=== PATIENT | female | born 1945 | race Hispanic/Latino ===

== ENCOUNTER 2018-03-04 05:28 | Emergency (ER) | payer OTHER ==
--- OUTSIDE RECORDS SUMMARY | 2018-03-04 05:30 | XMS REPORT ---
:1945 [facility] Address [address] [place] [address] Dr. Bose [address] [place] [id number] Care Team Providers Name Role Phone IBRAHIMA ESTRADA Unavailable Unavailable Problems This patient has no known problems. Allergies, Adverse Reactions, Alerts This patient has no known allergies or adverse reactions. Medications This patient has no known medications. Results Test Description Test Time Test Comments Text Results Atomic Results Result Comments TISSUE EXAM 2017-04-05 10:41:00 Surgical Pathology Report Case: [id number] Authorizing Provider: Ibrahima Estrada MD Collected: 03/31/2017 1558 Ordering Location: [facility] Endoscopy Received: 04/01/2017 0811 Services Pathologist: Jourdan Ortiz MD Specimen: Ampulla, ampulla polyp AMPULLA, POLYPECTOMY- DUODENAL MUCOSA WITH PRIOR RESECTION SITE CHANGES AND MARKED CAUTERY ARTEFACT - SEPARATE PIECE OF BENIGN DUODENAL MUCOSA WITH NO SIGNIFICANT DIAGNOSTIC ALTERATIONS- SEE COMMENT The biopsy includes pieces of duodenal mucosa with marked cautery artefact and showing changes consistent with prior resection site. There is nuclear stratification and atypia but these appear to be secondary to cautery artefact. No definitive adenomatous changes are seen. There is no high grade dysplasia or carcinoma. [id number] of small intestine, abnormal imaging study Ampulla polypThe specimen is received in a formalin-filled container labeled with the patient's information and labeled "ampulla polyp" and consists of two irregular shaped fragments segments of low tissue ranging from 0.3 to 0.6 cm, submitted entirely in A1. CG/ew Section shows pieces of duodenal mucosa with cautery artefact. There are foci of surface epithelial denudation with dilated ectatic congested capillaries and reactive fibrosis. The features are consistent with prior resection site. Focally preserved epithelium shows nuclear stratification and atypia and is interpreted as a cautery artefact. No high grade dysplasia or invasive carcinoma is seen. There is one separate piece of duodenal mucosa with no significant diagnostic alterations. TISSUE EXAM 2017-01-26 16:59:00 Test Item Value Reference Range Comments LAB AP CPT CODE (MICHAEL) (test eiug=[id number]) [id number]
--- OUTSIDE RECORDS SUMMARY | 2018-03-04 05:30 | XMS REPORT | Clinical Summary ---
:1945 Author Organization [facility] Address [address] [place] [address] Phone Care Team Providers Name Role Phone Unavailable Primary Care Provider Unavailable Allergies Active Allergy Reactions Severity Noted Date Comments Caffeine Anaphylaxis High 01/14/2017 Heart attack Codeine Other (See Comments) 01/14/2017 [employer] like ants crawling all over her Current Medications Prescription Sig. Disp. Refills Start Date End Date Status levothyroxine (SYNTHROID, Take 75 mcg by Active LEVOTHROID) 75 MCG tablet mouth Every morning on an empty stomach. bisoprolol (ZEBETA) 5 MG Take 5 mg by mouth Active tablet daily. potassium chloride SA Take 15 mEq by Active (KLOR-CON M15) 15 MEQ mouth 2 (two) times tablet daily. omega-3 fatty Take by mouth. Active acids-vitamin E 1,000 mg Cap aspirin 81 MG EC tablet Take 81 mg by mouth Active daily. niacin 100 MG tablet Take 100 mg by Active mouth daily with breakfast. Active Problems No known active problems Encounters Date Type Specialty Care Team Description 03/31/2017 Hospital Encounter Gastroenterology Ibrahima Estrada MD 03/31/2017 Anesthesia Event Gastroenterology Carol Mckeon MD 03/31/2017 Procedure Pass Gastroenterology 03/31/2017 Surgery Gastroenterology Ibrahima Estrada MD ENDOSCOPY,POLYPECTOMY 03/21/2017 Anesthesia Event Gastroenterology Nawaf Mojica CRNA 03/21/2017 Procedure Pass Gastroenterology after 03/03/2017 Social History Tobacco Use Types Packs/Day Years Used Date Never Smoker Alcohol Use Drinks/Week oz/Week Comments Yes rarely Sex Assigned at Date Recorded Not on file Last Filed Vital Signs Vital Sign Reading Time Taken Blood Pressure 124/57 03/31/2017 4:48 PM CDT Pulse 59 03/31/2017 4:48 PM CDT Temperature 36.1 C (97 F) 03/31/2017 4:07 PM CDT Respiratory Rate 16 03/31/2017 4:48 PM CDT Oxygen Saturation 100% 03/31/2017 4:48 PM CDT Inhaled Oxygen Concentration - - Weight 68.3 kg (150 lb 8 oz) 03/31/2017 1:18 PM CDT Height 137.2 cm (4' 6") 03/31/2017 1:18 PM CDT Body Mass Index 36.29 03/31/2017 1:18 PM CDT Plan of Treatment Not on file Implants Implanted Type Area Team Member Device Expiration Model / Identifier Date Serial / Lot Advanix Pancreatic Stent 5x9cm N/A: [place] 04/18/2018 / Implanted: Qty: 1 on 01/18/2017 by Ibrahima Estrada MD Pancreas [employer] [id number] / [id number] Procedures Procedure Name Priority Date/Time Associated Diagnosis Comments UPPER 03/31/2017 2:30 PM Polyp of small ENDOSCOPY,POLYPECTOMY CDT intestine Special Needs DUODENOSCOPE after 03/03/2017 Results REPORT OF PROCEDURE - ENDOSCOPY URL (03/31/2017 4:10 PM)Tissue Exam (2016 3:58 PM) Component Value Ref Range Case Report Surgical Pathology Report Case: [id number] Authorizing Provider:Ibrahima Estrada [facility] [place] 03/31/2017 1558 Ordering Location: [facility] Endoscopy Received: 04/01/2017 0811 Services Pathologist: Jourdan Ortiz MD Specimen:Ampulla, ampulla polyp DIAGNOSIS AMPULLA, POLYPECTOMY - DUODENAL MUCOSA WITH PRIOR RESECTION SITE CHANGES AND MARKED CAUTERY ARTEFACT - SEPARATE PIECE OF BENIGN DUODENAL MUCOSA WITH NO SIGNIFICANT DIAGNOSTIC ALTERATIONS - SEE COMMENT COMMENT The biopsy includes pieces of duodenal mucosa with marked cautery artefact and showing changes consistent with prior resection site. There is nuclear stratification and atypia but these appear to be secondary to cautery artefact. No definitive adenomatous changes are seen. There is no high grade dysplasia or carcinoma. CPT Code(s) 44360 CLINICAL HISTORY Polyp of small intestine, abnormal imaging study SPECIMEN SOURCE Ampulla polyp GROSS DESCRIPTION The specimen is received in a formalin-filled container labeled with the patient's information and labeled "ampulla polyp" and consists of two irregular shaped fragments segments of low tissue ranging from 0.3 to 0.6 cm, submitted entirely in A1. CG/ew MICROSCOPIC DESCRIPTION Section shows pieces of duodenal mucosa with [...] duodenal mucosa with no significant diagnostic alterations. Specimen Performing Laboratory Tissue - Ampulla [address] [id number] after 03/03/2017 Advance Directives Patient has advance directives. For more information, please contact:[address] [phone]
[2018-03-04] MEDS ORDERED: NA CHLORIDE 0.9% 1,000 ML ONE (06:07)
[2018-03-04] MEDS ORDERED: HYDROMORPHONE HCL 1 MG/ML INJ ONE (06:07)
[2018-03-04] MEDS ORDERED: ONDANSETRON 4 MG/2 ML VIAL ONE (06:09)
[2018-03-04 06:16] LABS: Absolute Lymphocytes (CBC) 1.3 K/uL (0.7-4.9); Absolute Monocytes 0.8 K/uL (0.1-1.3); Absolute Neutrophil 6.4 K/uL (1.8-8.0); Basophils % 0.2 % (0-1.3); Eosinophils % 1.4 % (0-4.4); Hematocrit 43.9 % (36.0-45.0); Lymphocytes % 15.5 % (15.3-44.8); MCH 30.5 pg (27.0-35.0); MCV 89.9 fL (80-100); MPV 10.7 fL (7.6-11.3); Monocytes % 9.4 % (3.3-12.3); RBC Red Blood Cell Count 4.88 M/uL (3.86-4.86)
[2018-03-04] MEDS ORDERED: MORPHINE 4 MG/ML SYR ONE (06:16)
[2018-03-04 06:25] LABS: Potassium 3.9 mEq/L (3.6-5.0)
[2018-03-04 06:31] LABS: Albumin 4.5 g/dL (3.2-5.5); Bilirubin Direct 0.1 mg/dL (0-0.2); Bilirubin Total 0.4 mg/dL (0.3-1.2)
[2018-03-04 08:27] LABS: Urine Bacteria <20 /HPF (<20); Urine Culture Reflex Order REFLEXED; Urine RBC <5 /HPF (NONE SEEN)
[2018-03-04 08:37] LABS: Urine Blood NEGATIVE (NEG); Urine Glucose NEGATIVE (NEG); Urine Protein NEGATIVE (NEG); Urine Specific Gravity 1.015 (1.005-1.030); Urine pH 5.5 (5.0-7.0)
--- NOTE | 2018-03-04 08:37 | RAD REPORT ---
EXAM DESCRIPTION: CT - Abdomen Pelvis W Contrast - 03/04/2018 8:08 am CLINICAL HISTORY: Abdominal pain. Epigastric pain with nausea and diarrhea since COMPARISON: None. TECHNIQUE: Computed axial tomography of the abdomen and pelvis was obtained. 100 cc Isovue-300 is ad ministered intravenously. Oral contrast was given. All CT scans are performed using dose optimization technique as appropriate and may include automated exposure control or mA/KV adjustment according to patient size. FINDINGS: The liver is enlarged with fatty infiltration Spleen, pancreas, adrenals and left kidney appear unremarkable. The left kidney has been removed The gallbladder has been removed. Pneumobilia is present. The common bile duct is mildly dilated. A colectomy has been performed. A right lower quadrant ileostomy is seen. A tube measuring about 6.2 centimeters is present within small bowel. Metallic structures are present within the posterior pelvis. These may represent internal radiation beams. Soft tissue within the pe lvis presumably represents the uterus. What is presumed to be endometrium measures 15 millimeters. Several loops of small bowel are mildly dilated. A a 15 millimeter spiculated soft tissue opacity is present within the central mesenteric just above the level of the iliac crest. A nonspecific 15 millimeter left inguinal lymph node is present which does not have a normal fatty ce nter IMPRESSION: Postsurgical changes as described above Mild dilatation of several small bowel loops probably representing a focal ileus or enteritis. A part ial/intermittent obstruction is considered less likely. If the patient's symptoms persist then a foll owup abdominal plain film series would be recommended. Soft tissue within the pelvis presumably represents the uterus. What appears to the endometrium measu res 15 millimeters and is thickened. This could represent endometrial hyperplasia, polyp or neoplasm. 15 millimeter soft tissue structure within the central mesentery probably representing fibrosis. Neop lasm can also have this appearance and should be monitored on a followup CT scan in 3 months to asses s stability. 15 millimeter nonspecific left inguinal lymph node which does not have a normal fatty center 6.2 centimeter tube within small bowel may represent a biliary stent which has migrated into the tevin l. Mild dilatation of the biliary tree
--- NOTE | 2018-03-04 11:12 | ER ---
Nurse's Notes [facility] Name: Toña Serrano Age: 72 yrs Sex: Female : 1945 Arrival Date: 03/04/2018 Time: 05:29 Bed 7 Private MD: Diagnosis: Diarrhea, unspecified;Upper abdominal pain, unspecified Presentation: 03/04 05:38 Presenting complaint: Patient states: Epigastric pain since with nausea and tl2 diarrhea. Transition of care: patient was not received from another setting of care. Onset of symptoms was March 02, 2018. Risk Assessment: Do you want to hurt yourself or someone else? Patient reports no desire to harm self or others. Initial Sepsis Screen: Does the patient meet any 2 criteria? No. Patient's initial sepsis screen is negative. Does the patient have a suspected source of infection? No. Patient's initial sepsis screen is negative. Care prior to arrival: None. 05:38 Method Of Arrival: Wheelchair tl2 05:38 Acuity: MILO 3 tl2 Triage Assessment: 05:40 General: Appears in no apparent distress. uncomfortable, Behavior is calm, cooperative, tl2 appropriate for age. Pain: Complains of pain in epigastric area Pain does not radiate. GI: Abdomen is non-distended, Reports diarrhea, nausea. Historical: - Allergies: 05:40 codeine sulfate; tl2 05:40 caffeine; tl2 - Home Meds: 05:43 aspirin 81 mg Oral chew 1 tab once daily [Active]; Vitamin B-12 1,000 mcg Oral tab ak1 [Active]; bisoprolol-hydrochlorothiazide 5-6.25 mg oral tab 1 tab once daily [Active]; levothyroxine 75 mcg tab 1 tab once daily [Active]; - PMHx: 05:40 Hypertension; Myocardial infarction; colon polyps; tl2 - PSHx: 08:17 Cholecystectomy; Appendectomy; nephrectomy left; sg 10:04 biliary stent; gs - Immunization history:: Adult Immunizations up to date. - Social history:: Smoking status: Patient/guardian denies using tobacco. - Ebola Screening: : No symptoms or risks identified at this time. Screenin:42 Abuse screen: Denies threats or abuse. Nutritional screening: No deficits noted. tl2 Tuberculosis screening: No symptoms or risk factors identified. Fall Risk None identified. Assessment: 05:45 General: Appears uncomfortable, Behavior is calm, cooperative. Pain: Complains of pain mg2 in abdomen and epigastric area Pain does not radiate. Pain currently is 10 out of 10 on a pain scale. Quality of pain is described as aching, Pain began gradually, Is intermittent. Neuro: Level of Consciousness is awake, alert, obeys commands, Oriented to person, place, time, situation. Cardiovascular: Capillary refill < 3 seconds Patient's skin is warm and dry. Respiratory: Airway is patent Respiratory effort is even, unlabored, Respiratory pattern is regular, symmetrical. GI: Abd is soft X 4 quads Reports upper abdominal pain, diarrhea. : No signs and/or symptoms were reported regarding the genitourinary system. EENT: No signs and/or symptoms were reported regarding the EENT system. Derm: Skin is intact, Skin is pink, warm \T\ dry. normal. Musculoskeletal: Circulation, motion, and sensation intact. Vital Signs: 05:40 BP 117 / 80; Pulse 74; Resp 18; Pulse Ox 95% on R/A; Weight 68.04 kg; Height 4 ft. 6 tl2 in. (137.16 cm); Pain 2/10; 06:50 BP 132 / 63; Pulse 62; Resp 16; Pulse Ox 100% on 2 lpm NC; Pain 0/10; ak1 07:00 Temp 97.6; sg 05:40 Body Mass Index 36.17 (68.04 kg, 137.16 cm) tl2 ED Course: 05:29 Patient arrived in ED. es 05:39 Triage completed. tl2 05:40 Arm band placed on right wrist. tl2 05:42 Patient has correct armband on for positive identification. Placed in gown. Bed in low tl2 position. Call light in reach. Side rails up X 1. 05:44 Flavio Draper, [place] is Primary Nurse. mg2 05:45 Inserted saline lock: 20 gauge in right forearm, using aseptic technique. Blood mg2 collected. 05:53 Eduardo Chavez MD is Attending Physician. wa 07:50 Assisted to bedside commode. sg 07:53 Primary Nurse role handed off by Flavio Draper, [place] sg 07:53 Zach Harkins, RN is Primary Nurse. sg 07:54 Urine collected: hat, clear. dh3 08:05 CT completed. Patient moved to CT via stretcher. Patient moved back from CT. 08:08 CT Abd/Pelvis - W/Contrast In Process Unspecified. EDNE 10:21 Attending Physician role handed off by Eduardo Chavez MD 10:21 Zane Desai MD is Attending Physician. 11:10 Olegario Kilpatrick MD is Referral Physician. 11:15 No provider procedures requiring assistance completed. Patient did not have IV access sg during this emergency room visit. Administered Medications: 06:11 Not Given (med not available): Dilaudid 1 mg IVP once wi 06:17 Drug: Zofran 4 mg Route: IVP; Site: right antecubital; rv 07:17 Follow up: Response: No adverse reaction; Nausea is decreased rv 06:17 Drug: NS 0.9% 1000 ml Route: IV; Rate: 1 bolus; Site: right antecubital; rv 06:24 CANCELLED (verbal order for diladid by Tereza ): morphine 4 mg IVP once [facility] 06:25 Drug: Dilaudid 1 mg Route: IVP; Site: right forearm; mg2 07:19 Follow up: Response: No adverse reaction; Pain is decreased rv Outcome: 11:11 Discharge ordered by MD. 11:15 Discharged to home ambulatory, with family. 11:15 Condition: good 11:15 Discharge instructions given to patient, Instructed on discharge instructions, follow up and referral plans. safety practices, Demonstrated understanding of instructions, follow-up care. 11:18 Patient left the ED. sg Signatures: Dispatcher [employer] EDZach Last, RN RN Ann Morton Amber RN RN ak1 Gemma Khanna Latha Puckett RN RN 2 Cassandra Munguia [facility] Zane Desai MD MD Eduardo Chavez MD MD wa Gardose, Michele, RN RN [facility] Leo Dasilva RN RN rv Corrections: (The following items were deleted from the chart) 19:41 11:15 Discharge instructions given to patient, Instructed on discharge instructions, sg follow up and referral plans. medication usage, safety practices, Demonstrated understanding of instructions, follow-up care, medications, Prescriptions given X 2, sg
--- NOTE | 2018-03-04 11:12 | EDPHYS ---
Physician Documentation [facility] Name: Toña Serrano Age: 72 yrs Sex: Female : 1945 Arrival Date: 03/04/2018 Time: 05:29 Bed 7 Private MD: ED Physician Zane Desai HPI: 03/04 10:02 This 72 yrs old Female presents to ER via Wheelchair with complaints of gs Abdominal Pain. 10:02 Onset: The symptoms/episode began/occurred 2 day(s) ago. Associated signs and symptoms: gs Pertinent positives: diarrhea, nausea. The symptoms are described as crampy. Modifying factors: The symptoms are alleviated by nothing, the symptoms are aggravated by nothing. Severity of pain: At its worst the pain was moderate in the emergency department the pain has improved moderately. The patient has experienced similar episodes in the past, a few times. The patient has not recently seen a physician. Historical: - Allergies: 05:40 codeine sulfate; tl2 05:40 caffeine; tl2 - Home Meds: 05:43 aspirin 81 mg Oral chew 1 tab once daily [Active]; Vitamin B-12 1,000 mcg Oral tab ak1 [Active]; bisoprolol-hydrochlorothiazide 5-6.25 mg oral tab 1 tab once daily [Active]; levothyroxine 75 mcg tab 1 tab once daily [Active]; - PMHx: 05:40 Hypertension; Myocardial infarction; colon polyps; tl2 - PSHx: 08:17 Cholecystectomy; Appendectomy; nephrectomy left; sg 10:04 biliary stent; gs - Immunization history:: Adult Immunizations up to date. - Social history:: Smoking status: Patient/guardian denies using tobacco. - Ebola Screening: : No symptoms or risks identified at this time. ROS: 10:04 Cardiovascular: Negative for chest pain. gs 10:04 Respiratory: Negative for shortness of breath. 10:04 All other systems are negative. Exam: 10:04 Head/Face: Normocephalic, atraumatic. Eyes: Pupils equal round and reactive to light, gs extra-ocular motions intact. Lids and lashes normal. Conjunctiva and sclera are non-icteric and not injected. Cornea within normal limits. Periorbital areas with no swelling, redness, or edema. ENT: Nares patent. No nasal discharge, no septal abnormalities noted. Tympanic membranes are normal and external auditory canals are clear. Oropharynx with no redness, swelling, or masses, exudates, or evidence of obstruction, uvula midline. Mucous membranes moist. Neck: Trachea midline, no thyromegaly or masses palpated, and no cervical lymphadenopathy. Supple, full range of motion without nuchal rigidity, or vertebral point tenderness. No Meningismus. Chest/axilla: Normal chest wall appearance and motion. Nontender with no deformity. No lesions are appreciated. Cardiovascular: Regular rate and rhythm with a normal S1 and S2. No gallops, murmurs, or rubs. Normal PMI, no JVD. No pulse deficits. Respiratory: Lungs have equal breath sounds bilaterally, clear to auscultation and percussion. No rales, rhonchi or wheezes noted. No increased work of breathing, no retractions or nasal flaring. Abdomen/GI: Soft, non-tender, with normal bowel sounds. No distension or tympany. No guarding or rebound. No evidence of tenderness throughout. Back: No spinal tenderness. No costovertebral tenderness. Full range of motion. Skin: Warm, dry with normal turgor. Normal color with no rashes, no lesions, and no evidence of cellulitis. MS/ Extremity: Pulses equal, no cyanosis. Neurovascular intact. Full, normal range of motion. Neuro: Awake and alert, GCS 15, oriented to person, place, time, and situation. Cranial nerves II-XII grossly intact. Motor strength 5/5 in all extremities. Sensory grossly intact. Cerebellar exam normal. Normal gait. 10:04 Constitutional: The patient appears alert, awake. 11:09 ECG was reviewed by the Attending Physician. Vital Signs: 05:40 BP 117 / 80; Pulse 74; Resp 18; Pulse Ox 95% on R/A; Weight 68.04 kg; Height 4 ft. 6 tl2 in. (137.16 cm); Pain 2/10; 06:50 BP 132 / 63; Pulse 62; Resp 16; Pulse Ox 100% on 2 lpm NC; Pain 0/10; ak1 07:00 Temp 97.6; sg 05:40 Body Mass Index 36.17 (68.04 kg, 137.16 cm) tl2 MDM: 05:53 Patient medically screened. va 10:04 Differential diagnosis: gastroesophageal reflux disease, non-specific abd pain, gs pancreatitis. Data reviewed: vital signs, nurses notes. Response to treatment: the patient's symptoms have markedly improved after treatment. ED course: non tender exam, no vomiting sbo less likely. 03/04 05:57 Order name: Basic Metabolic Panel; Complete Time: 07:19 va 03/04 05:57 Order name: CBC with Diff; Complete Time: 07:20 va 03/04 05:57 Order name: Hepatic Function; Complete Time: 07:20 va 03/04 05:57 Order name: Lipase; Complete Time: 07:20 va 03/04 05:57 Order name: Urine Microscopic Only; Complete Time: 08:46 va 03/04 08:07 Order name: Urine Dipstick--Ancillary (enter results); Complete Time: 08:46 em 03/04 06:12 Order name: CT Abd/Pelvis - W/Contrast; Complete Time: 08:46 va 03/04 08:29 Order name: Urine Culture EDMN 03/04 10:08 Order name: EKG; Complete Time: 10:08 03/04 05:57 Order name: IV Saline Lock; Complete Time: 06:10 va 03/04 05:57 Order name: Labs collected and sent; Complete Time: 06:23 va 03/04 05:57 Order name: Urine Dipstick-Ancillary (obtain specimen); Complete Time: 07:54 va 03/04 10:08 Order name: EKG - Nurse/Tech; Complete Time: 11:01 EC:09 Rate is 61 beats/min. Rhythm is regular. NV interval is normal. QRS interval is normal. gs QT interval is normal. T waves are Flattened. Clinical impression: NSR w/ Non-specific ST/T Changes. No change from previous ECG on January 01, 2016. Interpreted by me. Administered Medications: 06:11 Not Given (med not available): Dilaudid 1 mg IVP once wa 06:17 Drug: Zofran 4 mg Route: IVP; Site: right antecubital; rv 07:17 Follow up: Response: No adverse reaction; Nausea is decreased rv 06:17 Drug: NS 0.9% 1000 ml Route: IV; Rate: 1 bolus; Site: right antecubital; rv 06:24 CANCELLED (verbal order for diladid by [place]hia ): morphine 4 mg IVP once ak1 06:25 Drug: Dilaudid 1 mg Route: IVP; Site: right forearm; mg2 07:19 Follow up: Response: No adverse reaction; Pain is decreased rv Disposition: 03/04/18 11:11 Discharged to Home. Impression: Diarrhea, unspecified, Upper abdominal pain, unspecified. - Condition is Stable. - Discharge Instructions: Diarrhea, Viral Gastroenteritis. - Family Work Release, Medication Reconciliation Form, Thank You Letter, Antibiotic Education, Prescription Opioid Use form. - Follow up: Olegario Kilpatrick MD; When: 2 - 3 days; Reason: Re-evaluation by your physician. Signatures: Dispatcher [employer] EDMS Zach Harkins RN RN sg Daniela Mtz RN RN cr4 Greta Bhardwaj RN RN ak1 Latha Puckett RN RN tl2 Zane Desai MD MD gs [place], William, MD MD wa Gardose, Michele, RN RN mg2 Leo Dasilva RN RN rv Corrections: (The following items were deleted from the chart) 06:24 06:11 morphine 4 mg IVP once ordered. va ak1 06:24 06:20 morphine 4 mg IVP once ordered. cr4 ak1 11:18 11:11 03/04/2018 11:11 Discharged to Home. Impression: Diarrhea, unspecified; Upper sg abdominal pain, unspecified. Condition is Stable. Forms are Family Work Release, Medication Reconciliation Form, Thank You Letter, Antibiotic Education, Prescription Opioid Use. Follow up: Olegario Kilpatrick; When: 2 - 3 days; Reason: Re-evaluation by your physician.
[2018-03-04 12:12] VITALS: BP 132/63; O2SAT 100
[2018-03-04 12:13] VITALS: TEMP 97.6
--- NOTE | 2018-03-05 06:41 | EKG ---
Test Date: 2018-03-04 Test Time: 10:48:16 Tavern Keeper: SWG MEASUREMENT RESULTS: Intervals: Rate: 61 IL: 160 QRSD: 80 QT: 452 QTc: [address]: P: 38 IL: 160 QRS: 73 T: 110 INTERPRETIVE STATEMENTS: Normal sinus rhythm Nonspecific ST abnormality Abnormal ECG Compared to ECG 01/01/2016 15:57:33 ST (T wave) deviation still present Electronically Signed On 03-05-18 06:41:18 CDT by Estuardo Bhat
== END 2018-03-04 11:18 | disposition home or self-care (01) ==
LOC: ER 05:28
DX: R19.7 Diarrhea, unspecified (principal); I10 Essential (primary) hypertension; I25.2 Old myocardial infarction; Z79.82 Long term (current) use of aspirin; Z88.5 Allergy status to narcotic agent; Z91.048 Other nonmedicinal substance allergy status
CPT/HCPCS: 36415; 74177; 80048; 80076; 83690; 85025; 87086; 87088; 93005; 99284; J1170; J2405; J7030; Q9967; 81003; 81015

== ENCOUNTER 2018-08-25 03:25 | Emergency (ER) | payer OTHER ==
--- OUTSIDE RECORDS SUMMARY | 2018-08-25 03:27 | XMS REPORT | Clinical Summary ---
:[address] [facility] Address [address] [place] [address] Care Team Providers Name Role Phone Sharpmaribel Primary Care Provider Allergies Active Allergy Reactions Severity Noted Date Comments Caffeine Anaphylaxis High 01/14/2017 Heart attack Codeine Other (See Comments) 01/14/2017 [place] like ants crawling all over her Medications Medication Sig Dispensed Refills Start Date End Date Status levothyroxine Take 75 mcg by 0 Active (SYNTHROID, LEVOTHROID) mouth Every 75 MCG tablet morning on an empty stomach. bisoprolol (ZEBETA) 5 Take 5 mg by 0 Active MG tablet mouth daily. potassium chloride SA Take 15 mEq by 0 Active (KLOR-CON M15) 15 MEQ mouth 2 (two) tablet times daily. omega-3 fatty Take by mouth. 0 Active acids-vitamin E 1,000 mg Cap aspirin 81 MG EC tablet Take 81 mg by 0 Active mouth daily. niacin 100 MG tablet Take 100 mg by 0 Active mouth daily with breakfast. Active Problems No known active problems Social History Tobacco Use Types Packs/Day Years Used Date Never Smoker Alcohol Use Drinks/Week oz/Week Comments Yes rarely Sex Assigned at Date Recorded Not on file Job Start Date Occupation Industry Not on file Not on file Not on file Travel History Travel Start Travel End No recent travel history available. Last Filed Vital Signs Not on file Plan of Treatment Not on file Implants Implanted Type Area Classification Case Manager Device Shelf Model / Identifier Expiration Serial / Date Lot Advanix Pancreatic Stent 5x9cm N/A: [place] 04/18/2018 / Implanted: Qty: 1 on 01/18/2017 by Ibrahima Estrada MD Pancreas [employer] [id number] / [id number] Results Not on fileafter 08/24/2017 Insurance Payer Benefit Plan / Group Subscriber ID Type Phone Address MEDICARE MEDICARE A B xxxxxxxxxx Medicare MEDICAID MEDICAID [facility] xxxxxxxxx Medicaid Advance Directives Patient has advance care planning documents on file. For more information, please contact:[address] [phone]
--- OUTSIDE RECORDS SUMMARY | 2018-08-25 03:27 | XMS REPORT ---
:1945 Author Organization [facility] Address [address] [place] [address] Dr. Bose [address] [place] [address] Care Team Providers Name Role Phone IBRAHIMA ESTRADA Unavailable Unavailable Problems This patient has no known problems. Allergies, Adverse Reactions, Alerts This patient has no known allergies or adverse reactions. Medications This patient has no known medications. Results Test Description Test Time Test Comments Text Results Atomic Results Result Comments TISSUE EXAM 2017-04-05 10:41:00 Surgical Pathology Report Case: [id number] Authorizing Provider: Ibrahima Estrada MD Collected: 03/31/2017 1558 Ordering Location: [facility] Endoscopy Received: 04/01/2017 0811 Services Pathologist: [...] is no high grade dysplasia or carcinoma. [id number] of small intestine, abnormal imaging study Ampulla [...] Comments LAB AP CPT CODE (MICHAEL) (test iqas=[id number]) [id number]
[2018-08-25] MEDS ORDERED: HYDROCODONE/APAP 7.5/325 MG TAB ONE (04:11)
--- NOTE | 2018-08-25 06:58 | EDPHYS ---
Physician Documentation [facility] Name: Toña Serrano Age: 73 yrs Sex: Female : 1945 Arrival Date: 08/25/2018 Time: 03:28 Bed 15 Private MD: ED Physician Zane Desai HPI: 08/25 06:04 This 73 yrs old Female presents to ER via Ambulatory with complaints of Arm gs Pain, Rt arm. 06:05 The patient or guardian complains of pain, that is acute. The complaints affect the gs right bicep. Onset: The symptoms/episode began/occurred acutely, 3 day(s) ago. Modifying factors: the symptoms are aggravated by movement, bending arm. Associated signs and symptoms: Pertinent positives: pain, Pertinent negatives: deformity, erythema, fever. Severity of symptoms: At their worst the symptoms were moderate, in the emergency department the symptoms are unchanged. The patient has experienced similar episodes in the past, a few times. Historical: - Allergies: 03:42 caffeine; jb4 03:42 codeine sulfate; jb4 - Home Meds: 03:42 aspirin 81 mg Oral chew 1 tab once daily [Active]; bisoprolol-hydrochlorothiazide jb4 5-6.25 mg Oral tab 1 tab once daily [Active]; levothyroxine 75 mcg tab 1 tab once daily [Active]; Vitamin B-12 1,000 mcg Oral tab [Active]; - PMHx: 03:42 Colon Polyps; Hypertension; Myocardial infarction; Arthritis; skin cancer; jb4 - PSHx: 03:42 Cholecystectomy; Appendectomy; nephrectomy left; biliary stent; colon removal; hector jb4 shoulder surgery; - Immunization history:: Adult Immunizations not up to date. - Social history:: Smoking status: Patient/guardian denies using tobacco. - Ebola Screening: : No symptoms or risks identified at this time. ROS: 06:05 All other systems are negative. gs Exam: 06:05 Head/Face: Normocephalic, atraumatic. Eyes: Pupils equal round and reactive to light, gs extra-ocular motions intact. Lids and lashes normal. Conjunctiva and sclera are non-icteric and not injected. Cornea within normal limits. Periorbital areas with no swelling, redness, or edema. ENT: Nares patent. No nasal discharge, no septal abnormalities noted. Tympanic membranes are normal and external auditory canals are clear. Oropharynx with no redness, swelling, or masses, exudates, or evidence of obstruction, uvula midline. Mucous membranes moist. Neck: Trachea midline, no thyromegaly or masses palpated, and no cervical lymphadenopathy. Supple, full range of motion without nuchal rigidity, or vertebral point tenderness. No Meningismus. Chest/axilla: Normal chest wall appearance and motion. Nontender with no deformity. No lesions are appreciated. Cardiovascular: Regular rate and rhythm with a normal S1 and S2. No gallops, murmurs, or rubs. Normal PMI, no JVD. No pulse deficits. Respiratory: Lungs have equal breath sounds bilaterally, clear to auscultation and percussion. No rales, rhonchi or wheezes noted. No increased work of breathing, no retractions or nasal flaring. Abdomen/GI: Soft, non-tender, with normal bowel sounds. No distension or tympany. No guarding or rebound. No evidence of tenderness throughout. Back: No spinal tenderness. No costovertebral tenderness. Full range of motion. Skin: Warm, dry with normal turgor. Normal color with no rashes, no lesions, and no evidence of cellulitis. Neuro: Awake and alert, GCS 15, oriented to person, place, time, and situation. Cranial nerves II-XII grossly intact. Motor strength 5/5 in all extremities. Sensory grossly intact. Cerebellar exam normal. Normal gait. 06:05 Constitutional: The patient appears alert, awake. 06:05 Musculoskeletal/extremity: Extremities: noted in the right bicep: tenderness, There is no evidence of deformity, erythema, ROM: limited active range of motion due to pain, limited passive range of motion due to pain, Pulses: are normal with no appreciated deficits, Perfusion: the patient is normally perfused throughout. Vital Signs: 03:42 BP 127 / 62; Pulse 63; Resp 18; Temp 99.1; Pulse Ox 98% on R/A; Weight 68.04 kg (R); jb4 Height 5 ft. 6 in. (167.64 cm) (R); Pain 10/10; 04:30 BP 117 / 88; Pulse 77; Resp 16; Pulse Ox 99% on R/A; jb4 06:00 BP 119 / 86; Pulse 57; Resp 16; Pulse Ox 100% on R/A; jb4 03:42 Body Mass Index 24.21 (68.04 kg, 167.64 cm) jb4 MDM: 03:55 Patient medically screened. 06:05 Differential diagnosis: closed fracture, contusion, tendonitis, dvt. Data reviewed: vital signs, nurses notes. Response to treatment: the patient's symptoms have markedly improved after treatment, and as a result, I will. 08/25 03:56 Order name: Humerus Right XRAY 08/25 05:15 Order name: UPPER EXTREMITY VENOUS UNILATE EDRI Administered Medications: 03:58 CANCELLED (Patient Eloped): Bath 5 mg-325 mg 1 tabs PO once 04:01 CANCELLED (Patient Refused): traMADol 50 mg PO once 04:08 Drug: Bath (7.5 mg-325 mg) 1 tabs Route: PO; [facility] 07:06 Follow up: Response: No adverse reaction; Pain is decreased em Disposition: 08/25/18 06:57 Discharged to Home. Impression: Pain in right upper arm. - Condition is Stable. - Discharge Instructions: Musculoskeletal Pain. - Prescriptions for Naprosyn 500 mg Oral Tablet - take 1 tablet by ORAL route 2 times per day As needed take with food; 20 tablet. - Medication Reconciliation Form, Thank You Letter, Antibiotic Education, Prescription Opioid Use form. - Follow up: Zach Torres MD; When: 2 - 3 days; Reason: Re-evaluation by your physician. Signatures: Dispatcher [employer] [facility] Damien Bryant, APRON MAN APRON MAN em Mazin Denny RN RN jb4 Zane Desai MD MD Corrections: (The following items were deleted from the chart) 03:58 03:56 Bath 5 mg-325 mg 1 tabs PO once ordered. [facility] 04:01 03:59 traMADol 50 mg PO once ordered. [facility] 05:15 03:56 Extremity Venous Uni Ltd+US.RAD.BRZ ordered. [facility] 07:09 06:57 08/25/2018 06:57 Discharged to Home. Impression: Pain in right upper arm. em Condition is Stable. Forms are Medication Reconciliation Form, Thank You Letter, Antibiotic Education, Prescription Opioid Use. Follow up: Zach Torres; When: 2 - 3 days; Reason: Re-evaluation by your physician. gs
--- NOTE | 2018-08-25 06:58 | ER ---
Nurse's Notes [facility] Name: Toña Serrano Age: 73 yrs Sex: Female : 1945 Arrival Date: 08/25/2018 Time: 03:28 Bed 15 Private MD: Diagnosis: Pain in right upper arm Presentation: 08/25 03:39 Presenting complaint: Patient states: I have been having arm pain since Tuesday but jb4 tonight is the worst it has been. Transition of care: patient was not received from another setting of care. Onset of symptoms was August 23, 2018. Risk Assessment: Do you want to hurt yourself or someone else? Patient reports no desire to harm self or others. Initial Sepsis Screen: Does the patient meet any 2 criteria? No. Patient's initial sepsis screen is negative. Does the patient have a suspected source of infection? No. Patient's initial sepsis screen is negative. Care prior to arrival: None. 03:39 Method Of Arrival: Ambulatory jb4 03:39 Acuity: MILO 4 jb4 Triage Assessment: 03:42 General: Appears in no apparent distress. uncomfortable, Behavior is calm, cooperative, jb4 appropriate for age. Pain: Complains of pain in right elbow and right upper arm, Right shoulder Pain does not radiate. Pain currently is 10 out of 10 on a pain scale. Quality of pain is described as "it just hurts." Pain began 2-3 days ago. Is continuous. EENT: No signs and/or symptoms were reported regarding the EENT system. Neuro: Level of Consciousness is awake, alert, obeys commands, Oriented to person, place, time, situation. Cardiovascular: Patient's skin is warm and dry. Respiratory: Airway is patent Respiratory effort is even, unlabored, Respiratory pattern is regular, symmetrical. GI: No signs and/or symptoms were reported involving the gastrointestinal system. Pt reports having a colostomy. : No signs and/or symptoms were reported regarding the genitourinary system. Derm: Skin is intact, Skin is pink, warm \\T\\ dry. Musculoskeletal: Circulation, motion, and sensation intact. Historical: - Allergies: 03:42 caffeine; jb4 03:42 codeine sulfate; jb4 - Home Meds: 03:42 aspirin 81 mg Oral chew 1 tab once daily [Active]; bisoprolol-hydrochlorothiazide jb4 5-6.25 mg Oral tab 1 tab once daily [Active]; levothyroxine 75 mcg tab 1 tab once daily [Active]; Vitamin B-12 1,000 mcg Oral tab [Active]; - PMHx: 03:42 Colon Polyps; Hypertension; Myocardial infarction; Arthritis; skin cancer; jb4 - PSHx: 03:42 Cholecystectomy; Appendectomy; nephrectomy left; biliary stent; colon removal; hector jb4 shoulder surgery; - Immunization history:: Adult Immunizations not up to date. - Social history:: Smoking status: Patient/guardian denies using tobacco. - Ebola Screening: : No symptoms or risks identified at this time. Screenin:46 Abuse screen: Denies threats or abuse. Nutritional screening: No deficits noted. jb4 Tuberculosis screening: No symptoms or risk factors identified. Fall Risk None identified. Assessment: 03:46 General: see triage assessment.. jb4 05:08 Reassessment: Patient appears in no apparent distress at this time. Patient and/or jb4 family updated on plan of care and expected duration. Pain level reassessed. Patient is alert, oriented x 3, equal unlabored respirations, skin warm/dry/pink. 06:15 Reassessment: Patient appears in no apparent distress at this time. Patient and/or jb4 family updated on plan of care and expected duration. Pain level reassessed. Patient is alert, oriented x 3, equal unlabored respirations, skin warm/dry/pink. 07:09 Reassessment: Patient appears in no apparent distress at this time. Patient and/or em family updated on plan of care and expected duration. Pain level reassessed. Patient is alert, oriented x 3, equal unlabored respirations, skin warm/dry/pink. Vital Signs: 03:42 BP 127 / 62; Pulse 63; Resp 18; Temp 99.1; Pulse Ox 98% on R/A; Weight 68.04 kg (R); jb4 Height 5 ft. 6 in. (167.64 cm) (R); Pain 10/10; 04:30 BP 117 / 88; Pulse 77; Resp 16; Pulse Ox 99% on R/A; jb4 06:00 BP 119 / 86; Pulse 57; Resp 16; Pulse Ox 100% on R/A; jb4 03:42 Body Mass Index 24.21 (68.04 kg, 167.64 cm) jb4 ED Course: 03:28 Patient arrived in ED. es 03:38 Mazin Denny, RN is Primary Nurse. jb4 03:40 Triage completed. jb4 03:42 Arm band placed on left wrist. jb4 03:46 Patient has correct armband on for positive identification. Bed in low position. Call jb4 light in reach. Side rails up X 1. Pulse ox on. NIBP on. 03:49 Zane Desai MD is Attending Physician. gs 04:32 Humerus Right XRAY In Process Unspecified. EDMS 05:33 UPPER EXTREMITY VENOUS UNILATE In Process Unspecified. EDMS 05:33 Ultrasound completed. Patient tolerated well. aa4 06:56 Zach Torres MD is Referral Physician. gs 07:08 No provider procedures requiring assistance completed. Patient did not have IV access em during this emergency room visit. Administered Medications: 03:58 CANCELLED (Patient Eloped): [place] 5 mg-325 mg 1 tabs PO once gs 04:01 CANCELLED (Patient Refused): traMADol 50 mg PO once gs 04:08 Drug: [place] (7.5 mg-325 mg) 1 tabs Route: PO; jb4 07:06 Follow up: Response: No adverse reaction; Pain is decreased em Outcome: 06:57 Discharge ordered by . gs 07:08 Discharged to home ambulatory, with family. em 07:08 Condition: good 07:08 Discharge instructions given to patient, family, Instructed on discharge instructions, follow up and referral plans. medication usage, Demonstrated understanding of instructions, follow-up care, medications, Prescriptions given X 1. 07:09 Patient left the ED. em Signatures: Dispatcher [employer] EDAnn Ellis Edgar, DIRECTOR OF OPERATIONS SUPPORT DIRECTOR OF OPERATIONS SUPPORT em Jackeline Johnson aa4 Mazin Denny RN RN [facility] Zane Desai MD MD
[2018-08-25 07:16] VITALS: TEMP 99.1
[2018-08-25 07:19] VITALS: BP 119/86; O2SAT 100
--- NOTE | 2018-08-25 08:12 | RAD REPORT ---
EXAM DESCRIPTION: US - UPPER EXTREMITY VENOUS UNILATE - 08/25/2018 5:34 am CLINICAL HISTORY: PAIN Right arm swelling and edema. COMPARISON: No comparisons FINDINGS: Right upper extremity venous system was interrogated with Doppler technique. Normal flow, compressibility and augmentation was noted. There is no DVT present. IMPRESSION: No evidence of right upper extremity deep venous thrombosis.
--- NOTE | 2018-08-25 08:15 | RAD REPORT ---
EXAM DESCRIPTION: RAD - Humerus Right - 08/25/2018 4:32 am CLINICAL HISTORY: PAIN COMPARISON: No comparisons FINDINGS: Mild right shoulder arthritic changes are present. No fracture, dislocation or aggressive marrow process affects the right humerus.
== END 2018-08-25 07:09 | disposition home or self-care (01) ==
LOC: ER 03:25
DX: M79.621 Pain in right upper arm (principal); I10 Essential (primary) hypertension; I25.2 Old myocardial infarction; M19.90 Unspecified osteoarthritis, unspecified site; Z79.82 Long term (current) use of aspirin; Z79.899 Other long term (current) drug therapy
CPT/HCPCS: 93971; 99284

== ENCOUNTER 2019-08-16 00:45 | Emergency (ER) | payer OTHER ==
--- OUTSIDE RECORDS SUMMARY | 2019-08-16 00:48 | XMS REPORT ---
:1945 Author Organization [facility] Address [address] [place] [address] Dr. Bose [address] [place] [address] Care Team Providers Name Role Phone IBRAHIMA ESTRADA Unavailable Unavailable Problems This patient has no known problems. Allergies, Adverse Reactions, Alerts This patient has no known allergies or adverse reactions. Medications This patient has no known medications. Results Test Description Test Time Test Comments Text Results Atomic Results Result Comments TISSUE EXAM 2017-04-05 10:41:00 Surgical Pathology Report Case: [id number] Authorizing Provider: Ibrahima Estrada MD Collected: 03/31/2017 1558 Ordering Location: [facility] Endoscopy Received: 04/01/2017 0811 Services Pathologist: [...] is no high grade dysplasia or carcinoma. 53353Ktyzo of small intestine, abnormal imaging study Ampulla [...] Comments LAB AP CPT CODE (MICHAEL) (test [id number]) [id number]
--- OUTSIDE RECORDS SUMMARY | 2019-08-16 00:48 | XMS REPORT | Summary of Care ---
:1945 Author Organization [facility] Address [address] [place] [address] Care Team Providers Name Role Phone Jake Dion Primary Care Provider Encounter Details Date Type Department Care Team Description 05/15/2019 Letter (Out) [facility] Lashonda Metz PA-C [facility] [place] [address], [address] [place] [address] [place] [address] Allergies Active Allergy Reactions Severity Noted Date Comments Caffeine Other - See comments 08/21/2015 She use to drink a lot of coffee and it gave her a heart attack in 1983 Codeine Other - See comments 08/21/2015 "Funny feeling inside body" documented as of this encounter (statuses as of 05/15/2019) Medications Medication Sig Dispensed Refills Start Date End Date Status bisoprolol-hydrochlor 2 07/25/2015 Active othiazide (ZIAC) 5-6.25 mg per tablet ASPIRIN ORAL Take 81 mg by 0 Active mouth. DOCOSAHEXANOIC Take by mouth. 0 Active ACID/EPA (FISH OIL ORAL) NIACIN ORAL Take by mouth. 0 Active tramadol-acetaminophe 0 01/05/2016 Active n (ULTRACET) 37.5-325 mg per tablet Levothyroxine 75 mcg TK 1 T PO QD 0 02/06/2019 Active capsule cholecalciferol, Take by mouth. 0 Active vitamin D3, (VITAMIN D3 ORAL) cyanocobalamin, Take by mouth. 0 Active vitamin B-12, (VITAMIN B-12 ORAL) MELATONIN ORAL Take by mouth. 0 Active furosemide 20 mg TK 1 T PO QD FOR 0 03/20/2019 Active tablet 14 DAYS clindamycin 2 % Insert 1 30 Each 0 04/17/2019 05/17/2019 Active creamIndications: BV Applicator into (bacterial vagina at bedtime vaginosis), Chronic for 30 days. vaginitis documented as of this encounter (statuses as of 05/15/2019) Active Problems Problem Noted Date Colostomy in place 04/06/2018 Urinary incontinence, unspecified type 04/06/2018 Hx of myocardial infarction 04/06/2018 Obesity (BMI 30-39.9) 11/17/2016 Left knee pain 01/09/2016 documented as of this encounter (statuses as of 05/15/2019) Immunizations Name Administration Dates Next Due Influenza Virus Vaccine 07/22/2018 documented as of this encounter Social History Tobacco Use Types Packs/Day Years Used Date Never Smoker Smokeless Tobacco: Never Used Alcohol Use Drinks/Week oz/Week Comments No 0 Standard drinks or equivalent 0.0 Sex Assigned at Date Recorded Not on file Job Start Date Occupation Industry Not on file Not on file Not on file Travel History Travel Start Travel End No recent travel history available. documented as of this encounter Last Filed Vital Signs Not on filedocumented in this encounter Plan of Treatment Date Type Specialty Care Team Description 06/06/2019 Appointment Radiology Lashonda Metz PA-C [address] [phone] 04/10/2020 Office Visit Obstetrics & Gynecology Lashonda Metz PA-C [address] [phone] Health Maintenance Due Date Last Done Comments HEPATITIS C (HCV) SCREEN 1945 DTaP,Tdap,and Td Vaccines (1 - Tdap) 1966 MAMMOGRAM 1987 COLONOSCOPY 1997 Zoster Recombinant Vaccine (SHINGRIX) (1 of 2) 1997 Medicare Wellness Visit 2012 Osteoporosis Screening 2012 PNEUMOCOCCAL VACCINES 65+ (1 of 2 - PCV13) 2012 INFLUENZA VACCINE (#1) 2019 07/22/2018 documented as of this encounter Results Not on filedocumented in this encounter Insurance Payer Benefit Plan Subscriber ID Effective Phone Address Type / Group Dates UNITED UHC MEDICARE [id number] 2018-Pres Medicare Adv HEALTHCARE COMPLETE ent PPO MEDICARE CHOICE ADVANTAGE [facility] MEDICAID OF xxxxxxxxx 2015-Pre [phone] Medicaid [place] sent [id number] [place] [address] documented as of this encounter
--- OUTSIDE RECORDS SUMMARY | 2019-08-16 00:48 | XMS REPORT | Summary of Care ---
:1945 Author Organization [facility] Address [address] [place] [address] Care Team Providers Name Role Phone Dion Joseph Primary Care Provider Reason for Visit Reason Comments Lab Results Encounter Details Date Type Department Care Team Description 04/17/2019 Case Management [facility] Women's Lashonda Metz PA-C Lab Results Healthcare- [address] [facility] [address] [place] [phone] Allergies Active Allergy Reactions Severity Noted Date Comments Caffeine Other - See comments 08/21/2015 She use to drink a lot of coffee and it gave her a heart attack in 1983 Codeine Other - See comments 08/21/2015 "Funny feeling inside body" documented as of this encounter (statuses as of 04/17/2019) Medications Medication Sig Dispensed Refills Start Date End Date Status bisoprolol-hydrochlorothi 2 07/25/2015 Active azide (ZIAC) 5-6.25 mg per tablet ASPIRIN ORAL Take 81 mg by 0 Active mouth. DOCOSAHEXANOIC ACID/EPA Take by mouth. 0 Active (FISH OIL ORAL) NIACIN ORAL Take by mouth. 0 Active tramadol-acetaminophen 0 01/05/2016 Active (ULTRACET) 37.5-325 mg per tablet Levothyroxine 75 mcg TK 1 T PO QD 0 02/06/2019 Active capsule cholecalciferol, vitamin Take by mouth. 0 Active D3, (VITAMIN D3 ORAL) cyanocobalamin, vitamin Take by mouth. 0 Active B-12, (VITAMIN B-12 ORAL) MELATONIN ORAL Take by mouth. 0 Active furosemide 20 mg tablet TK 1 T PO QD 0 03/20/2019 Active FOR 14 DAYS documented as of this encounter (statuses as of 04/17/2019) Active Problems Problem Noted Date Colostomy in place 04/06/2018 Urinary incontinence, unspecified type 04/06/2018 Hx of myocardial infarction 04/06/2018 Obesity (BMI 30-39.9) 11/17/2016 Left knee pain 01/09/2016 documented as of this encounter (statuses as of 04/17/2019) Immunizations Name Administration Dates Next Due Influenza [...] 06/06/2019 Appointment Radiology Lashonda Metz PA-C [address] [phone] 04/10/2020 Office Visit Obstetrics & [facility]necology [facility] [address] [place] [address] Health Maintenance Due Date Last Done Comments HEPATITIS C (HCV) SCREEN 1945 DTaP,Tdap,and Td Vaccines (1 - Tdap) 1966 MAMMOGRAM 1987 COLONOSCOPY 1997 Zoster Recombinant Vaccine (SHINGRIX) (1 of 2) 1997 Medicare Wellness Visit 2012 Osteoporosis Screening 2012 PNEUMOCOCCAL VACCINES 65+ (1 of 2 - PCV13) 2012 INFLUENZA VACCINE 05/20/2019 07/22/2018 documented as of this encounter Results Not on filedocumented in this encounter Insurance Payer Benefit Plan Subscriber ID Effective Phone Address Type / Group Dates UNITED UHC MEDICARE [id number] 2018-Pres Medicare Adv HEALTHCARE COMPLETE ent PPO MEDICARE CHOICE ADVANTAGE [facility] MEDICAID OF xxxxxxxxx 2015-Pre [phone] Medicaid [place] sent [id number] [place] [address] documented as of this encounter
--- OUTSIDE RECORDS SUMMARY | 2019-08-16 00:48 | XMS REPORT | Summary of Care ---
:1945 Author Organization [facility] Address [address] [place] [address] Care Team Providers Name Role Phone Dion Joseph Primary Care Provider Reason for Visit Reason Comments New Medication Encounter Details Date Type Department Care Team Description 04/17/2019 Case Management [facility] Women's Lashonda Metz, New Medication Healthcare- [address] [place] [address] [address] [address] [place] [phone] Allergies Active Allergy Reactions Severity Noted Date [...] 06/06/2019 Appointment Radiology Lashonda Metz PA-C [address] [phone] 04/10/2020 Office Visit Obstetrics & Gynecology Lashonda Metz PA-C [address] [phone] Health Maintenance Due Date Last [...] Results Not on filedocumented in this encounter Visit Diagnoses Diagnosis Chronic vaginitis - Primary Vaginitis and vulvovaginitis, unspecified BV (bacterial vaginosis) Vaginitis and vulvovaginitis, unspecified documented in this encounter Insurance Payer Benefit Plan Subscriber ID Effective Phone Address Type / Group Dates UNITED UHC MEDICARE [id number] 2018-Pres Medicare Adv HEALTHCARE COMPLETE ent PPO MEDICARE CHOICE ADVANTAGE [facility] MEDICAID OF xxxxxxxxx 2015-Pre [phone] [address] Medicaid [place] sent [id number] [place] [address] documented as of this encounter
[2019-08-16 01:35] LABS: Absolute Lymphocytes (CBC) 0.8 K/uL (0.7-4.9); Basophils % 0.3 % (0-1.3); Hematocrit 41.1 % (36.0-45.0); Lymphocytes % 11.4 % (15.3-44.8); MPV 10.6 fL (7.6-11.3); RBC Red Blood Cell Count 4.51 M/uL (3.86-4.86)
[2019-08-16] MEDS ORDERED: MORPHINE 2 MG/ML SYR ONE (01:40)
[2019-08-16] MEDS ORDERED: ONDANSETRON 4 MG/2 ML VIAL ONE (01:41)
[2019-08-16] MEDS ORDERED: NA CHLORIDE 0.9% 1,000 ML ONE (01:41)
[2019-08-16 02:25] LABS: Albumin 3.7 g/dL (3.4-5.0); Bilirubin Direct 0.1 mg/dL (0-0.2); Bilirubin Total 0.4 mg/dL (0.2-1.0); Potassium 3.4 mmol/L (3.5-5.1); Protein, Total 7.4 g/dL (6.4-8.2)
--- NOTE | 2019-08-16 04:26 | ER ---
Nurse's Notes [facility] Name: Toña Serrano Age: 74 yrs Sex: Female : 1945 Arrival Date: 08/16/2019 Time: 00:49 Bed 18 Private MD: Diagnosis: Abdominal tenderness;Other viral enteritis Presentation: 08/16 01:00 Presenting complaint: Patient states: "Since Tuesday I've been having diarrhea, upper cc3 abdominal pain and nausea". Transition of care: patient was not received from another setting of care. Onset of symptoms was August 11, 2019. Risk Assessment: Do you want to hurt yourself or someone else? Patient reports no desire to harm self or others. Initial Sepsis Screen: Does the patient meet any 2 criteria? No. Patient's initial sepsis screen is negative. Does the patient have a suspected source of infection? Yes: Acute abdominal pain. Care prior to arrival: Aleve taken at home at 2000H. 01:00 Method Of Arrival: Wheelchair cc3 01:00 Acuity: MILO 3 cc3 Triage Assessment: 01:00 General: Appears in no apparent distress. uncomfortable, Behavior is calm, cooperative, cc3 appropriate for age. Pain: Complains of pain in bilateral upper abdomen. EENT: No signs and/or symptoms were reported regarding the EENT system. Neuro: Level of Consciousness is awake, alert, obeys commands, Oriented to person, place, time, situation, Appropriate for age. Cardiovascular: Denies chest pain, Heart tones S1 S2 present Capillary refill < 3 seconds in bilateral fingers Patient's skin is warm and dry. Respiratory: Airway is patent Respiratory effort is even, unlabored, Respiratory pattern is regular, symmetrical, Breath sounds are clear bilaterally. GI: Abdomen is round non-distended, Bowel sounds present X 4 quads. Abd is soft X 4 quads Abdomen is tender to palpation in bilateral upper abdomen Reports upper abdominal pain, diarrhea, nausea, since Tuesday colostomy bag noted at the right lower quadrant abdomen. : No signs and/or symptoms were reported regarding the genitourinary system. Derm: Skin is intact, is fragile, is thin, Skin is normal, brown. Musculoskeletal: Circulation, motion, and sensation intact. Range of motion: intact in all extremities. Historical: - Allergies: 01:00 caffeine; cc3 01:00 codeine sulfate; cc3 - Home Meds: 01:00 aspirin 81 mg Oral chew 1 tab once daily [Active]; bisoprolol-hydrochlorothiazide cc3 5-6.25 mg Oral tab 1 tab once daily [Active]; levothyroxine 75 mcg tab 1 tab once daily [Active]; Vitamin B-12 1,000 mcg Oral tab [Active]; Melatonin Oral [Active]; - PMHx: 01:00 Arthritis; Colon Polyps; Hypertension; Myocardial infarction; skin cancer; cc3 - PSHx: 01:00 Colostomy; left kidney removal; cc3 - Immunization history:: Adult Immunizations not up to date. - Social history:: Smoking status: Patient/guardian denies using tobacco, never smoked. - Ebola Screening: : No symptoms or risks identified at this time. Screenin:00 Abuse screen: Denies threats or abuse. Denies injuries from another. Nutritional cc3 screening: No deficits noted. Tuberculosis screening: No symptoms or risk factors identified. Fall Risk Ambulatory Aid- None/Bed Rest/Nurse Assist (0 pts). Gait- Normal/Bed Rest/Wheelchair (0 pts) Mental Status- Oriented to own ability (0 pts). Assessment: 01:00 General: see triage assessment. cc3 02:28 Reassessment: Patient appears in no apparent distress at this time. Patient and/or cc3 family updated on plan of care and expected duration. Pain level reassessed. Patient is alert, oriented x 3, equal unlabored respirations, skin warm/dry/pink. 03:00 Reassessment: Patient appears in no apparent distress at this time. Patient and/or cc3 family updated on plan of care and expected duration. Pain level reassessed. Patient is alert, oriented x 3, equal unlabored respirations, skin warm/dry/pink. patient came back from CT scan department, awaiting result. 04:40 Reassessment: Patient appears in no apparent distress at this time. Patient and/or cc3 family updated on plan of care and expected duration. Pain level reassessed. Patient is alert, oriented x 3, equal unlabored respirations, skin warm/dry/pink. Dr. Lam discharged the patient home with prescription given. IV cannula removed and patient left ER vitally stable by wheelchair escorted by me and the patient's daughter. NO valuables left in the patient's room. Patient denies pain at this time. Patient states feeling better. Patient states symptoms have improved. Vital Signs: 01:00 BP 107 / 68; Pulse 72; Resp 18 S; Temp 98.2(O); Pulse Ox 98% on R/A; Weight 68.04 kg cc3 (R); Height 4 ft. 7 in. (139.70 cm) (R); Pain 4/10; 02:28 BP 108 / 54; Pulse 69; Resp 17 S; Pulse Ox 96% on R/A; cc3 03:12 BP 118 / 55; Pulse 68; Resp 18 S; Pulse Ox 96% on R/A; cc3 04:25 BP 112 / 67; Pulse 65; Resp 16 S; Pulse Ox 98% on R/A; Pain 0/10; cc3 01:00 Body Mass Index 34.86 (68.04 kg, 139.70 cm) cc3 ED Course: 00:49 Patient arrived in ED. cl3 01:00 Patient has correct armband on for positive identification. Bed in low position. Call cc3 light in reach. Side rails up X2. decator operator on. Pulse ox on. NIBP on. 01:00 Arm band placed on right wrist. Patient notified of wait time. cc3 01:04 Kristi Patrick is Primary Nurse. cc3 01:10 Kervin Syed PA is PHCP. jmm 01:10 True Lam MD is Attending Physician. jmm 01:20 Triage completed. cc3 01:25 Inserted saline lock: 22 gauge in left forearm, using aseptic technique. Blood rr5 collected. 03:08 CT completed. Patient tolerated procedure well. Patient moved to CT via wheelchair. Patient moved back from CT. 03:13 CT Abd/Pelvis - IV Contrast Only In Process Unspecified. EDMS 04:40 No provider procedures requiring assistance completed. IV discontinued, intact, cc3 bleeding controlled, No redness/swelling at site. Pressure dressing applied. Administered Medications: 01:40 Drug: morphine 2 mg {Note: RASS 0.} Route: IVP; Site: left forearm; cc3 02:28 Follow up: Response: No adverse reaction; Pain is decreased; RASS: Alert and Calm (0) cc3 01:40 Drug: NS 0.9% 1000 ml Route: IV; Rate: 1 bolus; Site: left forearm; cc3 03:00 Follow up: Response: No adverse reaction; IV Status: Completed infusion; IV Intake: cc3 1000ml 01:45 Drug: Zofran 4 mg Route: IVP; Site: left forearm; cc3 02:27 Follow up: Response: No adverse reaction; Nausea is decreased cc3 04:30 Drug: Bentyl 20 mg Route: PO; cc3 04:40 Follow up: Response: No adverse reaction; Pain is decreased cc3 Intake: 03:00 IV: 1000ml; Total: 1000ml. cc3 Outcome: 04:25 Discharge ordered by . tw4 04:40 Discharged to home via wheelchair, with family. cc3 04:40 Condition: stable 04:40 Discharge instructions given to patient, family, Instructed on discharge instructions, follow up and referral plans. medication usage, Demonstrated understanding of instructions, follow-up care, medications, Prescriptions given X 1. 04:41 Patient left the ED. cc3 Signatures: Dispatcher [employer] EDMS Kervin Syed PA PA jmm Hagler, Ervin eh Wadley, Terrence, MD MD tw4 Kristi Patrick cc3 Julio Frausto RN RN rr5 Yanelis Mendez cl3
--- NOTE | 2019-08-16 04:27 | EDPHYS ---
Physician Documentation [facility] Name: Toña Serrano Age: 74 yrs Sex: Female : 1945 Arrival Date: 08/16/2019 Time: 00:49 Bed 18 Private MD: ED Physician True aLm HPI: 08/16 01:27 This 74 yrs old Female presents to ER via Wheelchair with complaints of Nausea.jmm 01:27 The patient presents to the emergency department with nausea, diarrhea, abdominal pain. jmm Onset: The symptoms/episode began/occurred gradually, 1 day(s) ago. Possible causes: unknown. The symptoms are aggravated by nothing. The symptoms are alleviated by nothing. Associated signs and symptoms: Pertinent positives: abdominal pain, dysuria. This is a 74 year old female with a history of htn, mi, colectomy that presents to the ED with complaints of abdominal pain, nausea, diarrhea beginning yesterday. Patient localizes pain to the epigastric region. Patient states pain has been chronic but intensified this past Tuesday. . Historical: - Allergies: 01:00 caffeine; cc3 01:00 codeine sulfate; cc3 - Home Meds: 01:00 aspirin 81 mg Oral chew 1 tab once daily [Active]; bisoprolol-hydrochlorothiazide cc3 5-6.25 mg Oral tab 1 tab once daily [Active]; levothyroxine 75 mcg tab 1 tab once daily [Active]; Vitamin B-12 1,000 mcg Oral tab [Active]; Melatonin Oral [Active]; - PMHx: 01:00 Arthritis; Colon Polyps; Hypertension; Myocardial infarction; skin cancer; cc3 - PSHx: 01:00 Colostomy; left kidney removal; cc3 - Immunization history:: Adult Immunizations not up to date. - Social history:: Smoking status: Patient/guardian denies using tobacco, never smoked. - Ebola Screening: : No symptoms or risks identified at this time. ROS: 01:27 Constitutional: Negative for fever, chills, and weight loss, Cardiovascular: Negative jmm for chest pain, palpitations, and edema, Respiratory: Negative for shortness of breath, cough, wheezing, and pleuritic chest pain. 01:27 Abdomen/GI: Positive for abdominal pain. 01:27 All other systems are negative. Exam: 01:27 Constitutional: This is a well developed, well nourished patient who is awake, alert, jmm and in no acute distress. Head/Face: atraumatic. Eyes: EOMI, no conjunctival erythema appreciated ENT: Moist Mucus Membranes Neck: Trachea midline, Supple Chest/axilla: Normal chest wall appearance and motion. Cardiovascular: Regular rate and rhythm. No edema appreciated 01:27 Respiratory: Normal respirations, no respiratory distress appreciated Back: Normal ROM Skin: General appearance color normal MS/ Extremity: Moves all extremities, no obvious deformities appreciated, no edema noted to the lower extremities Neuro: Awake and alert, normal gait Psych: Behavior is normal, Mood is normal, Patient is cooperative and pleasant 01:27 Abdomen/GI: Inspection: abdomen appears normal, ostomy noted, Bowel sounds: Palpation: soft, mild abdominal tenderness, in the epigastric area. Vital Signs: 01:00 BP 107 / 68; Pulse 72; Resp 18 S; Temp 98.2(O); Pulse Ox 98% on R/A; Weight 68.04 kg cc3 (R); Height 4 ft. 7 in. (139.70 cm) (R); Pain 4/10; 02:28 BP 108 / 54; Pulse 69; Resp 17 S; Pulse Ox 96% on R/A; cc3 03:12 BP 118 / 55; Pulse 68; Resp 18 S; Pulse Ox 96% on R/A; cc3 04:25 BP 112 / 67; Pulse 65; Resp 16 S; Pulse Ox 98% on R/A; Pain 0/10; cc3 01:00 Body Mass Index 34.86 (68.04 kg, 139.70 cm) cc3 MDM: 01:19 Patient medically [facility]. [facility] 02:12 Transition of care: After a detail discussion of the patient's case, care is [facility] transferred to True Lam MD. 04:34 Differential diagnosis: Nonspecific abd pain, cholecystitis. Data reviewed: vital tw4 signs, nurses notes. Data interpreted: Pulse oximetry: Interpretation: normal. Counseling: I had a detailed discussion with the patient and/or guardian regarding: the historical points, exam findings, and any diagnostic results supporting the discharge/admit diagnosis. Special discussion: I discussed with the patient/guardian in detail that at this point there is no indication for admission to the hospital. It is understood, however, that if the symptoms persist or worsen the patient needs to return immediately for re-evaluation. 08/16 01:26 Order name: Basic Metabolic Panel; Complete Time: 23:51 [facility] 08/16 01:26 Order name: CBC with Diff; Complete Time: :48 [facility] 08/16 01:26 Order name: Creatinine for Radiology; Complete Time: 01:48 [facility] 08/16 01:26 Order name: Hepatic Function; Complete Time: 23:51 [facility] 08/16 01:26 Order name: Lipase; Complete Time: :51 [facility] 08/16 01:26 Order name: CT Abd/Pelvis - IV Contrast Only; Complete Time: 23:51 [facility] 08/16 01:26 Order name: IV Saline Lock; Complete Time: :35 [facility] 08/16 01:26 Order name: Labs collected and sent; Complete Time: :35 jmm Administered Medications: 01:40 Drug: morphine 2 mg {Note: RASS 0.} Route: IVP; Site: left forearm; cc3 02:28 Follow up: Response: No adverse reaction; Pain is decreased; RASS: Alert and Calm (0) cc3 01:40 Drug: NS 0.9% 1000 ml Route: IV; Rate: 1 bolus; Site: left forearm; cc3 03:00 Follow up: Response: No adverse reaction; IV Status: Completed infusion; IV Intake: cc3 1000ml 01:45 Drug: Zofran 4 mg Route: IVP; Site: left forearm; cc3 02:27 Follow up: Response: No adverse reaction; Nausea is decreased cc3 04:30 Drug: Bentyl 20 mg Route: PO; cc3 04:40 Follow up: Response: No adverse reaction; Pain is decreased cc3 Disposition: 06:55 Co-signature as Attending Physician, True Lam MD I agree with the assessment and tw4 plan of care. Disposition: 08/16/19 04:25 Discharged to Home. Impression: Abdominal tenderness, Other viral enteritis. - Condition is Stable. - Discharge Instructions: Viral Gastroenteritis, Adult, Abdominal Pain, Adult, [id number]. - Prescriptions for Bentyl 20 mg Oral Tablet - take 1 tablet by ORAL route every 6 hours As needed; 20 tablet. - Medication Reconciliation Form, Thank You Letter, Antibiotic Education, Prescription Opioid Use form. - Follow up: Private Physician; When: Upon discharge from the Emergency Department; Reason: Recheck today's complaints, Continuance of care. - Problem is new. - Symptoms have improved. Signatures: Dispatcher [employer] EDKervin Kendrick PA PA jmm Wadley, Terrence, MD MD tw4 Kristi Patrick cc3 Corrections: (The following items were deleted from the chart) 04:41 04:25 08/16/2019 04:25 Discharged to Home. Impression: Abdominal tenderness; Other cc3 viral enteritis. Condition is Stable. Forms are Medication Reconciliation Form, Thank You Letter, Antibiotic Education, Prescription Opioid Use. Follow up: Private Physician; When: Upon discharge from the Emergency Department; Reason: Recheck today's complaints, Continuance of care. Problem is new. Symptoms have improved. tw4
[2019-08-16] MEDS ORDERED: DICYCLOMINE HCL 10 MG CAP ONE (04:35)
[2019-08-16 04:58] VITALS: TEMP 98.2
[2019-08-16 05:00] VITALS: O2SAT 96
[2019-08-16 05:01] VITALS: BP 118/55
--- NOTE | 2019-08-16 12:36 | RAD REPORT ---
EXAM DESCRIPTION: CT - Abdomen Pelvis W Contrast - 08/16/2019 3:44 am CLINICAL HISTORY: Abdominal pain. Nausea and diarrhea. Left nephrectomy, cholecystectomy, appendecto my, colostomy. COMPARISON: CT abdomen and pelvis with contrast 03/04/2018. TECHNIQUE: Axial CT imaging of the abdomen and pelvis performed with intravenous contrast. Reformatt ed coronal and sagittal images reviewed. A dose reduction technique was utilized with automated exposure control according to patient size. FINDINGS: Minimal left lower lobe atelectasis. Heart is mildly enlarged. Normal liver size and conto ur. Mild fatty liver infiltration. There is chronic pneumobilia. The common bile duct is dilated to 1 .5 cm due to postvasectomy status. Normal spleen, pancreas, adrenal glands. Left kidney is surgically absent. Normal right kidney parenchyma. Mild fullness of right renal pelvis. There may be a 3 mm sto ne in the mid right ureter seen on axial image 45 and 4 mm calculus axial image 50. Mild aortic ather osclerosis. No aneurysm. Normal caliber inferior vena cava. No adenopathy. Mesenteric vessels appear normal. Unremarkable stomach. There are a few mildly dilated central small bowel loops with fluid levels. The re is evidence of colectomy. Right lower quadrant enterostomy noted. No ascites or free air. Numerous scattered surgical clips throughout the abdomen. Unremarkable bladder. The uterus contains a mild amount of endometrial fluid. There is no pelvic free fluid or adenopathy. There is mild lower lumbar facet arthropathy. Unremarkable bony pelvis. Enlarged left inguinal lymph nodes up to 1.9 cm. IMPRESSION: 1. Mild dilatation of a few central small bowel loops may represent chronic or recurrent ileus or mild enteritis. 2. Fatty liver with chronic pneumobilia. Post cholecystectomy biliary dilatation. 3. Mild right renal pelvic fullness. Possible mid right ureteral stones up to 4 mm. 4. Status post colectomy. Right lower quadrant enterostomy appears stable. Electronically signed by: Allie Sidhu DO 08/16/2019 3:35 AM [employer] Due to temporary technical issues with the PACS/Fluency reporting system, reports are being signed by the in house radiologist as a courtesy to ensure prompt reporting. The interpreting radiologist is f ully responsible for the content of the report.
== END 2019-08-16 04:41 | disposition home or self-care (01) ==
LOC: ER 00:45
DX: A08.39 Other viral enteritis (principal); I10 Essential (primary) hypertension; I25.2 Old myocardial infarction; Z79.82 Long term (current) use of aspirin; Z88.5 Allergy status to narcotic agent; Z91.018 Allergy to other foods
CPT/HCPCS: 96361; 85025; 80048; 36415; 80076; 83690; 74177; 96375; 96374; 99285; Q9967; J2270; J7030; J2405

== ENCOUNTER 2019-11-16 08:11 | Emergency (ER) | payer OTHER ==
[2019-11-16] MEDS ORDERED: IBUPROFEN 400 MG TAB ONE (08:28)
--- OUTSIDE RECORDS SUMMARY | 2019-11-16 08:29 | XMS REPORT ---
:1945 Author Organization [facility] Address [address] [place] [address] [address] [address] Care Team Providers Name Role Phone IBRAHIMA ESTRADA Unavailable Unavailable Problems This patient has no known problems. Allergies, Adverse Reactions, Alerts This patient has no known allergies or adverse reactions. Medications This patient has no known medications. Results Test Description Test Time Test Comments Text Results Atomic Results Result Comments TISSUE EXAM 2017-04-05 10:41:00 Surgical Pathology Report Case: [id number] Authorizing Provider: Ibrahima Estrada MD Collected: 03/31/2017 1558 Ordering Location: [facility] Endoscopy Received: 04/01/2017 0811 Services Pathologist: Jourdan [...] is no high grade dysplasia or carcinoma. [id number] of small intestine, abnormal imaging study Ampulla [...] Comments LAB AP CPT CODE (MICHAEL) (test zlrr=[id number]) [id number]
--- OUTSIDE RECORDS SUMMARY | 2019-11-16 08:31 | XMS REPORT | Summary of Care ---
:1945 Author Organization [facility] Address [address] [place] [address] Care Team Providers Name Role Phone Dion Joseph Primary Care Provider Reason for Visit Reason Comments Results mammogram Encounter Details Date Type Department Care Team Description 11/06/[address] [facility] Women's Lashonda Metz PA-C Results (mammogram) Healthcare- [address] [facility], [facility] [address] [place] [phone] Allergies Active Allergy Reactions Severity Noted Date Comments Caffeine Other - See comments 08/21/2015 She use to drink a lot of coffee and it gave her a heart attack in 1983 Codeine Other - See comments 08/21/2015 "Funny feeling inside body" [place] like ants crawling all over her documented as of this encounter (statuses as of 11/06/2019) Medications Medication Sig Dispensed Refills Start Date End Date Status bisoprolol-hydrochloroth Take 1 tablet by 2 07/25/2015 Active iazide (ZIAC) 5-6.25 mg mouth daily. per tablet ASPIRIN ORAL Take 81 mg by 0 Active mouth daily. Levothyroxine 75 mcg TK 1 T PO QD 0 02/06/2019 Active capsule cholecalciferol, vitamin Take 1 tablet by 0 Active D3, (VITAMIN D3 ORAL) mouth daily. cyanocobalamin, vitamin Take 1 tablet by 0 Active B-12, (VITAMIN B-12 mouth daily. ORAL) MELATONIN ORAL Take 1 tablet by 0 Active mouth at bedtime. furosemide 20 mg tablet TK 1 T PO QD FOR 0 03/20/2019 Active 14 DAYS omeprazole 40 mg capsule Take 40 mg by 1 07/03/2019 Active mouth daily. potassium chloride 10 Take 10 mEq by 0 Active mEq CR capsule mouth daily. documented as of this encounter (statuses as of 11/06/2019) Active Problems Problem Noted Date Colostomy in place 04/06/2018 Urinary incontinence, unspecified type 04/06/2018 Hx of myocardial infarction 04/06/2018 Obesity (BMI 30-39.9) 11/17/2016 Left knee pain 01/09/2016 documented as of this encounter (statuses as of 11/06/2019) Immunizations Name Administration Dates Next Due Influenza [...] Treatment Date Type Specialty Care Team Description 04/10/2020 Office Visit Obstetrics & Gynecology Lashonda Metz PA-C [address] [place] [phone] Health Maintenance Due Date Last Done Comments HEPATITIS C (HCV) SCREEN 1945 DTaP,Tdap,and Td Vaccines (1 - Tdap) 1958 Breast Cancer Screening (MAMMOGRAM) 1987 COLONOSCOPY 1997 Zoster Recombinant Vaccine (SHINGRIX) (1 of 2) 1997 Medicare Wellness Visit 2012 PNEUMOCOCCAL VACCINES 65+ (1 of 2 - PCV13) 2012 INFLUENZA VACCINE (#1) 2019 07/22/2018 Osteoporosis Screening 06/12/2029 06/12/2019 documented as of this encounter Implants Implanted Type Area Skoog Operator Device Shelf Model / Identifier Expiration Date Serial / Lot Lens, Rajeev #[id number] - [id number] LENS Left: Eye Rajeev 10/19/2023 [id number] / Implanted: Qty: 1 on 08/01/2019 by Harish Mckenzie MD at [facility] [id number] / N/A documented as of this encounter Results Not on filedocumented in this encounter Insurance Payer Benefit Plan Subscriber ID Effective Phone Address Type / Group Dates [place] UHC MEDICARE [id number] 2018-Pres Medicare Adv HEALTHCARE COMPLETE ent PPO MEDICARE CHOICE ADVANTAGE [facility] MEDICAID OF xxxxxxxxx 2015-Pre [phone] [address] Medicaid [place] sent 161 [id number] [place] [address] documented as of this encounter
--- OUTSIDE RECORDS SUMMARY | 2019-11-16 08:31 | XMS REPORT | Summary of Care ---
:1945 Author Organization [facility] Address [address] [place] [id number] Care Team Providers Name Role Phone Dion Joseph Primary Care Provider Reason for Visit Reason Comments Medical Records Encounter Details Date Type Department Care Team Description 11/06/2019 Case Management [facility] Lashonda Metz, Medical Records [facility]- [address], [facility] [address] [place] [id number] [place], [place] [phone] Allergies Active Allergy Reactions Severity Noted Date Comments Caffeine Other - See comments 08/21/2015 She use to drink a lot of coffee and it gave her a heart attack in 1983 Codeine Other - See comments 08/21/2015 "Funny feeling inside body" [place] like ants crawling all over her documented [...] Signs Not on filedocumented in this encounter Progress Notes Lashonda Metz PA-C - 11/06/2019 2:46 PM CSTMR received from of bilateral breasts on 11/05/2019 at [facility] No sonographic/mammographic abnormality seen to explain pain within breasts. BI RADS category 2, benign. Patient should have a routine annual mammogram. documented in this encounter Plan of Treatment Date Type Specialty Care Team Description 04/10/2020 Office Visit Obstetrics & Gynecology Lashonda Metz PA-C [address] [place] [phone] Health Maintenance Due Date Last Done [...] of this encounter Implants Implanted Type Area Ap Processor Device Shelf Model / Identifier Expiration Date Serial / Lot Lens, Rajeev #[id number] - [id number] LENS Left: Eye Rajeev 10/19/2023 [id number] / Implanted: Qty: 1 on 08/01/2019 by Harish Mckenzie MD at [facility] [id number] / N/A documented as of this encounter Results Not on filedocumented in this encounter Insurance Payer Benefit Plan Subscriber ID Effective Phone Address Type / Group Dates UNITED UHC MEDICARE [id number] 2018-Pres Medicare Adv HEALTHCARE COMPLETE ent PPO MEDICARE CHOICE ADVANTAGE [facility] MEDICAID OF xxxxxxxxx 2015-Pre [phone] Medicaid [place] sent [id number] [place] [address] documented as of this encounter
--- OUTSIDE RECORDS SUMMARY | 2019-11-16 08:32 | XMS REPORT | Summary of Care ---
:1945 Author Organization [facility] Address [address] [place] [id number] Care Team Providers Name Role Phone Dion Joseph Primary Care Provider Reason for Visit Reason Comments Results mammogram Encounter Details Date Type Department Care Team Description 11/06/2019 Telephone [facility] Lashonda Metz PA-C Results (mammogram) Healthcare- [address] [facility], [facility] [address] [place] [phone] Allergies Active Allergy Reactions Severity Noted Date Comments Caffeine Other - See comments 08/21/2015 She use to drink a lot of coffee and it gave her a heart attack in 1983 Codeine Other - See comments 08/21/2015 "Funny feeling inside body" [place] like ants crawling all over her documented [...] Visit Obstetrics & Gynecology Lashonda Metz PA-C [address] [place] [phone] Health Maintenance Due Date Last Done [...] of this encounter Implants Implanted Type Area Wrapper Dipper Device Shelf Model / Identifier Expiration Date Serial / Lot Lens, Rajeev #[id number] - [id number] LENS Left: Eye Rajeev 10/19/2023 [id number] / Implanted: Qty: 1 on 08/01/2019 by Harish Mckenzie MD at [facility] [id number] / N/A documented as of this encounter Results Not on filedocumented in this encounter Insurance Payer Benefit Plan Subscriber ID Effective Phone Address Type / Group Dates UNITED UHC MEDICARE [id number] 2018-Pres Medicare Adv HEALTHCARE COMPLETE ent PPO MEDICARE CHOICE ADVANTAGE [facility] MEDICAID OF xxxxxxxxx 2015-Pre [phone] Medicaid [place] sent [id number] [place] [address] documented as of this encounter
--- NOTE | 2019-11-16 08:59 | ER ---
Nurse's Notes [facility] Name: Toña Serrano Age: 74 yrs Sex: Female : 1945 Arrival Date: 11/16/2019 Time: 08:14 Bed 6 Private MD: Diagnosis: Fall due to bumping against object;Contusion of left knee;Contusion of right knee;Abrasion, left great toe Presentation: 11/16 08:21 Chief complaint: Patient states: she tripped and fell onto bilateral knees onto concrete while walking this morning and stubbed her right great toe. Denies LOC. Care prior to arrival: None. Mechanism of Injury: Fall from standing position. Trauma event details: Injury occurred in the [facility], Injury occurred: on a street or highway. Injury occurred: November 16, 2019. 08:21 Acuity: MILO 4 08:21 Method Of Arrival: Wheelchair 08:28 Coronavirus screen: The patient has NOT traveled to [place] in the past 14 days. Proceed sv with normal triage procedures. The patient has NOT had contact with known and/or suspected case of Coronavirus. Proceed with normal triage procedures. Ebola Screen: No symptoms or risks identified at this time. Initial Sepsis Screen: Does the patient meet any 2 criteria? No. Patient's initial sepsis screen is negative. Does the patient have a suspected source of infection? No. Patient's initial sepsis screen is negative. Risk Assessment: Do you want to hurt yourself or someone else? Patient reports no desire to harm self or others. 08:28 Onset of symptoms was November 16, 2019. Trauma Activation: Not Applicable Physician: ED Physician; Name: ; Notified At: ; Arrived At: Physician: General Surgeon; Name: ; Notified At: ; Arrived At: Physician: Radiology; Name: ; Notified At: ; Arrived At: Physician: Respiratory; Name: ; Notified At: ; Arrived At: Physician: Lab; Name: ; Notified At: ; Arrived At: Historical: - Allergies: 08:25 caffeine; sv 08:25 codeine sulfate; sv - Home Meds: 08:25 bisoprolol-hydrochlorothiazide 5-6.25 mg Oral tab 1 tab once daily [Active]; sv levothyroxine 75 mcg tab 1 tab once daily [Active]; Vitamin D3 oral oral [Active]; Vitamin B-12 2500 mcg Oral tab daily [Active]; aspirin 81 mg Oral chew 1 tab once daily [Active]; Melatonin Oral [Active]; Potassium Chloride Oral [Active]; - PMHx: 08:25 Arthritis; Colon Polyps; Hypertension; Myocardial infarction; skin cancer; sv - PSHx: 08:25 Colostomy; left kidney removal; sv - Immunization history: Last tetanus immunization: - up to date. - Social history:: Smoking status: Patient denies any tobacco usage or history of. - Family history:: not pertinent. Screenin:28 Abuse screen: Denies threats or abuse. Denies injuries from another. Nutritional sv screening: No deficits noted. Tuberculosis screening: No symptoms or risk factors identified. Fall Risk No fall in past 12 months (0 pts). No secondary diagnosis (0 pts). No IV (0 pts). Ambulatory Aid- None/Bed Rest/Nurse Assist (0 pts). Gait- Normal/Bed Rest/Wheelchair (0 pts) Mental Status- Oriented to own ability (0 pts). Total Weaver Fall Scale indicates No Risk (0-24 pts). Primary Survey: 08:26 NO uncontrolled hemorrhage observed. A: The patient is alert. Airway: patent, No sv supplemental oxygen in use on arrival. Oral cavity: clear, Trachea midline. Breathing/Chest: Respiratory pattern: regular, Respiratory effort: spontaneous, unlabored, Chest inspection: symmetrical rise and fall of the chest. Circulation: Pulses: palpable right dorsalis pedis artery and left dorsalis pedis artery. Skin color: pink, Skin temperature: warm, dry. Disability Alert. Exposure/Environment: All clothing and personal items were removed. Forensic evidence collection is not deemed to be indicated at this time. Items placed in patient belonging bag. There is no evidence of uncontrolled external bleeding. Obvious injury(ies) are noted at this time: stubbed her right great toe, dried blood noted. A warming method has been applied: A warm blanket has been provided to the patient. 09:12 Reassessment Airway Airway Patent Oxygen No O2 Oral cavity Clear Trachea Midline sv Breathing/Chest Respiratory pattern Regular Respiratory effort Spontaneous Unlabored Chest inspection Symmetrical Circulation Pulses Palpable Color [place] Temperature Warm Dry Disability Alert. Secondary Survey: 08:26 HEENT: No deficits noted. Gastrointestinal: No deficits noted. : No deficits noted. sv No signs and/or symptoms were reported regarding the genitourinary system. Musculoskeletal: No deficits noted. No signs and/or symptoms reported regarding the musculoskeletal system. Vital Signs: 08:22 BP 134 / 64; Pulse 68; Resp 16; Temp 97.4; Pulse Ox 100% ; Weight 68.04 kg; Height 4 sv ft. 7 in. (139.70 cm); Pain 5/10; 09:11 BP 112 / 70; Pulse 66; Resp 16; Temp 97.5; Pulse Ox 100% ; sv 08:22 Body Mass Index 34.86 (68.04 kg, 139.70 cm) sv Rush Coma Score: 08:22 Eye Response: spontaneous(4). Verbal Response: oriented(5). Motor Response: obeys sv commands(6). Total: 15. 09:11 Eye Response: spontaneous(4). Verbal Response: oriented(5). Motor Response: obeys sv commands(6). Total: 15. Trauma Score (Adult): 08:22 Eye Response: spontaneous(1); Verbal Response: oriented(1); Motor Response: obeys sv commands(2); Systolic BP: > 89 mm Hg(4); Respiratory Rate: 10 to 29 per min(4); Rush Score: 15; Trauma Score: 12 09:11 Eye Response: spontaneous(1); Verbal Response: oriented(1); Motor Response: obeys sv commands(2); Systolic BP: > 89 mm Hg(4); Respiratory Rate: 10 to 29 per min(4); Rodri Score: 15; Trauma Score: 12 ED Course: 08:14 Patient arrived in ED. rg4 08:16 Haja Leso MD is Attending Physician. [facility] 08:21 Alycia Quinn RN is Primary Nurse. sv 08:22 Triage completed. sv 08:28 Patient has correct armband on for positive identification. Bed in low position. Call light in reach. Side rails up X 1. Adult w/ patient. 08:28 Arm band placed on Patient placed in an exam room. sv 08:28 Patient maintains SpO2 saturation greater than 95% on room air. sv 08:28 Thermoregulation: warm blanket given to patient. sv 08:29 Awaiting for x-ray. sv 08:40 Wound care: to abrasion, located on right first toe was cleaned with Hibiclens, dressed sv with Neosporin, 4X4s, band aid, Patient tolerated well. 09:01 Knee Left 3 View XRAY In Process Unspecified. EDMS 09:01 Knee Right 3 View XRAY In Process Unspecified. EDMS 09:12 No provider procedures requiring assistance completed. Patient did not have IV access sv during this emergency room visit. Administered Medications: 08:29 Drug: Motrin 400 mg Route: PO; sv 09:14 Follow up: Response: No adverse reaction sv 08:35 Drug: Neosporin Ointment 1 application Route: Topical; Site: affected area; Intake: 08:22 PO: 0ml; Total: 0ml. sv 09:11 PO: 0ml; Total: 0ml. sv Output: 08:22 Urine: 0ml; Total: 0ml. sv 09:11 Urine: 0ml; Total: 0ml. sv Outcome: 08:59 Discharge ordered by . claudia 09:13 Discharged to home via wheelchair, with family. sv 09:13 Condition: stable 09:13 Discharge instructions given to patient, family, Instructed on discharge instructions, follow up and referral plans. medication usage, wound care, Demonstrated understanding of instructions, follow-up care, medications, wound care, Prescriptions given X 2. 09:13 Patient's length of stay was not longer than 2 hours. 09:14 Patient left the ED. sv Signatures: Dispatcher [employer] Alycia Colon, RN Haja Pike MD MD cha Garcia, Rubi rg4 Cristal Bhat RN RN
--- NOTE | 2019-11-16 09:00 | EDPHYS ---
Physician Documentation [facility] Name: Toña Serrano Age: 74 yrs Sex: Female : 1945 Arrival Date: 11/16/2019 Time: 08:14 Bed 6 Private MD: ED Physician Haja Leos HPI: 11/16 08:22 This 74 yrs old Female presents to ER via Unassigned with complaints of Fall claudia Injury, Knee Pain. 08:22 Details of fall: The patient fell from an upright position, while walking. Onset: The claudia symptoms/episode began/occurred just prior to arrival. Associated injuries: The patient sustained right leg and left leg, decreased range of motion, painful injury, swelling. Historical: - Allergies: 08:25 caffeine; sv 08:25 codeine sulfate; sv - Home Meds: 08:25 bisoprolol-hydrochlorothiazide 5-6.25 mg Oral tab 1 tab once daily [Active]; sv levothyroxine 75 mcg tab 1 tab once daily [Active]; Vitamin D3 oral oral [Active]; Vitamin B-12 2500 mcg Oral tab daily [Active]; aspirin 81 mg Oral chew 1 tab once daily [Active]; Melatonin Oral [Active]; Potassium Chloride Oral [Active]; - PMHx: 08:25 Arthritis; Colon Polyps; Hypertension; Myocardial infarction; skin cancer; sv - PSHx: 08:25 Colostomy; left kidney removal; sv - Immunization history: Last tetanus immunization: - up to date. - Social history:: Smoking status: Patient denies any tobacco usage or history of. - Family history:: not pertinent. ROS: 08:22 Constitutional: Negative for fever, chills, and weight loss, Eyes: Negative for injury, claudia pain, redness, and discharge, ENT: Negative for injury, pain, and discharge, Neck: Negative for injury, pain, and swelling, Cardiovascular: Negative for chest pain, palpitations, and edema, Respiratory: Negative for shortness of breath, cough, wheezing, and pleuritic chest pain, Abdomen/GI: Negative for abdominal pain, nausea, vomiting, diarrhea, and constipation, Back: Negative for injury and pain, : Negative for injury, bleeding, discharge, and swelling, Skin: Negative for injury, rash, and discoloration, Neuro: Negative for headache, weakness, numbness, tingling, and seizure, Psych: Negative for depression, anxiety, suicide ideation, homicidal ideation, and hallucinations, Allergy/Immunology: Negative for hives, rash, and allergies, Endocrine: Negative for neck swelling, polydipsia, polyuria, polyphagia, and marked weight changes, Hematologic/Lymphatic: Negative for swollen nodes, abnormal bleeding, and unusual bruising. 08:22 MS/extremity: Positive for decreased range of motion, pain, swelling, tenderness, of the right leg and left leg. Exam: 08:22 Constitutional: This is a well developed, well nourished patient who is awake, alert, claudia and in no acute distress. Head/Face: Normocephalic, atraumatic. Eyes: Pupils equal round and reactive to light, extra-ocular motions intact. Lids and lashes normal. Conjunctiva and sclera are non-icteric and not injected. Cornea within normal limits. Periorbital areas with no swelling, redness, or edema. ENT: Nares patent. No nasal discharge, no septal abnormalities noted. Tympanic membranes are normal and external auditory canals are clear. Oropharynx with no redness, swelling, or masses, exudates, or evidence of obstruction, uvula midline. Mucous membranes moist. Neck: Trachea midline, no thyromegaly or masses palpated, and no cervical lymphadenopathy. Supple, full range of motion without nuchal rigidity, or vertebral point tenderness. No Meningismus. Chest/axilla: Normal chest wall appearance and motion. Nontender with no deformity. No lesions are appreciated. Cardiovascular: Regular rate and rhythm with a normal S1 and S2. No gallops, murmurs, or rubs. Normal PMI, no JVD. No pulse deficits. Respiratory: Lungs have equal breath sounds bilaterally, clear to auscultation and percussion. No rales, rhonchi or wheezes noted. No increased work of breathing, no retractions or nasal flaring. Abdomen/GI: Soft, non-tender, with normal bowel sounds. No distension or tympany. No guarding or rebound. No evidence of tenderness throughout. Back: No spinal tenderness. No costovertebral tenderness. Full range of motion. Skin: Warm, dry with normal turgor. Normal color with no rashes, no lesions, and no evidence of cellulitis. Neuro: Awake and alert, GCS 15, oriented to person, place, time, and situation. Cranial nerves II-XII grossly intact. Motor strength 5/5 in all extremities. Sensory grossly intact. Cerebellar exam normal. Normal gait. Psych: Awake, alert, with orientation to person, place and time. Behavior, mood, and affect are within normal limits. 08:22 Musculoskeletal/extremity: ROM: intact in all extremities, Circulation is intact in all extremities. Sensation intact. Compartment Syndrome exam of affected extremity: is normal. Joints: limited range of motion, pain at rest, painful range of motion, tenderness, Weight bearing: can bear weight with assistance only, Tendon exam: specific tendon testing normal through active and passive range of motion DVT Exam: negative Homans' sign noted on exam, no appreciated bluish discoloration, no erythema, no increased warmth, pain, swelling, tenderness. Vital Signs: 08:22 BP 134 / 64; Pulse 68; Resp 16; Temp 97.4; Pulse Ox 100% ; Weight 68.04 kg; Height 4 sv ft. 7 in. (139.70 cm); Pain 5/10; 09:11 BP 112 / 70; Pulse 66; Resp 16; Temp 97.5; Pulse Ox 100% ; sv 08:22 Body Mass Index 34.86 (68.04 kg, 139.70 cm) sv Calera Coma Score: 08:22 Eye Response: spontaneous(4). Verbal Response: oriented(5). Motor Response: obeys sv commands(6). Total: 15. 09:11 Eye Response: spontaneous(4). Verbal Response: oriented(5). Motor Response: obeys sv commands(6). Total: 15. Trauma Score (Adult): 08:22 Eye Response: spontaneous(1); Verbal Response: oriented(1); Motor Response: obeys sv commands(2); Systolic BP: > 89 mm Hg(4); Respiratory Rate: 10 to 29 per min(4); Calera Score: 15; Trauma Score: 12 09:11 Eye Response: spontaneous(1); Verbal Response: oriented(1); Motor Response: obeys sv commands(2); Systolic BP: > 89 mm Hg(4); Respiratory Rate: 10 to 29 per min(4); Calera Score: 15; Trauma Score: 12 MDM: 08:16 Patient medically screened. [facility] 08:26 Data reviewed: vital signs, nurses notes, radiologic studies, plain films. [facility] 11/16 08:21 Order name: Knee Left 3 View XRAY [facility] 11/16 08:21 Order name: Knee Right 3 View XRAY [facility] 11/16 08:21 Order name: Ice pack; Complete Time: 08:37 [facility] 11/16 08:21 Order name: Wound Care; Complete Time: 08:36 [facility] Administered Medications: 08:29 Drug: Motrin 400 mg Route: PO; sv 09:14 Follow up: Response: No adverse reaction 08:35 Drug: Neosporin Ointment 1 application Route: Topical; Site: affected area; Disposition: 11/16/19 08:59 Discharged to Home. Impression: Fall due to bumping against object, Contusion of left knee, Contusion of right knee, Abrasion, left great toe. - Condition is Stable. - Discharge Instructions: Abrasion, Knee Pain, Abrasion, [id number], Fall Prevention in the Home, Gfgf-uf-Tord, Knee Pain, Qurn-dv-Aafq. - Prescriptions for Tramadol 50 mg Oral Tablet - take 1 tablet by ORAL route every 8 hours as needed; 24 tablet. Motrin IB 200 mg Oral Tablet - take 1 tablet by ORAL route every 6 hours As needed as needed with food; 20 tablet. - Medication Reconciliation Form, Thank You Letter, Antibiotic Education, Prescription Opioid Use, Family Work Release form. - Follow up: Private Physician; When: 2 - 3 days; Reason: Recheck today's complaints, Continuance of care, Re-evaluation by your physician. - Problem is new. - Symptoms have improved. Signatures: Dispatcher [employer] Alycia Colon RN RN sv Anderson, Corey, MD MD cha Harris, Amy, RN RN Corrections: (The following items were deleted from the chart) 09:14 08:59 11/16/2019 08:59 Discharged to Home. Impression: Fall due to bumping against sv object; Contusion of left knee; Contusion of right knee; Abrasion, left great toe. Condition is Stable. Discharge Instructions: Abrasion, Knee Pain, Abrasion, Pbek-wb-Svfy, Fall Prevention in the Home, Svjd-yf-Havf, Knee Pain, Bkhr-zs-Adzs. Prescriptions for Tramadol 50 mg Oral Tablet - take 1 tablet by ORAL route every 8 hours as needed; 24 tablet, Motrin IB 200 mg Oral Tablet - take 1 tablet by ORAL route every 6 hours As needed as needed with food; 20 tablet. and Forms are Medication Reconciliation Form, Thank You Letter, Antibiotic Education, Prescription Opioid Use. Follow up: Private Physician; When: 2 - 3 days; Reason: Recheck today's complaints, Continuance of care, Re-evaluation by your physician. Problem is new. Symptoms have improved. claudia
[2019-11-16 09:22] VITALS: BP 112/70; TEMP 97.5; O2SAT 100
--- NOTE | 2019-11-16 09:38 | RAD REPORT ---
EXAM DESCRIPTION: RAD - Knee Left 3 View - 11/16/2019 8:59 am CLINICAL HISTORY: PAIN, trip and fall COMPARISON: Knee Left 3 view dated 11/28/2014 FINDINGS: No fracture, dislocation or periosteal reaction.No joint effusion on today's study No join t space narrowing. No soft tissue abnormality. IMPRESSION: No acute bone or joint finding identified. No joint effusion on today's study. Clinical concerns for internal derangement or occult bony injury could be further assessed with MR im aging.
--- NOTE | 2019-11-16 09:39 | RAD REPORT ---
EXAM DESCRIPTION: RAD - Knee Right 3 View - 11/16/2019 8:59 am CLINICAL HISTORY: PAIN, trip and fall COMPARISON: No comparisonsNone. FINDINGS: No fracture, dislocation or periosteal reaction.No joint effusion seen. No joint space cori rowing. Minimal spurring is seen at the quadriceps attachment to the patella. There is minimal spurri ng at the patella tendon insertion. Meniscal degenerative calcifications present. IMPRESSION: Degenerative changes are present, mild for age. No acute bone or joint finding. Clinical concerns for internal derangement or occult bony injury could be further assessed with MR im aging.
== END 2019-11-16 09:14 | disposition home or self-care (01) ==
LOC: ER 08:11
DX: S80.01XA Contusion of right knee, initial encounter (principal); S90.412A Abrasion, left great toe, initial encounter; W18.00XA Striking against unspecified object with subsequent fall, initial encounter; Y93.01 Activity, walking, marching and hiking; Y92.9 Unspecified place or not applicable; I10 Essential (primary) hypertension; I25.2 Old myocardial infarction; Z79.82 Long term (current) use of aspirin; Z88.5 Allergy status to narcotic agent; Z91.018 Allergy to other foods
CPT/HCPCS: 99284

== ENCOUNTER 2020-10-09 04:46 | Emergency (ER) | payer OTHER ==
--- OUTSIDE RECORDS SUMMARY | 2020-10-09 04:49 | XMS REPORT | Clinical Summary ---
:1945 Author Organization [facility] Address [address] [place] [address] Care Team Providers Name Role Phone Sharpmaribel Primary Care Provider Allergies Active Allergy Reactions Severity Noted Date Comments Caffeine Anaphylaxis High 01/14/2017 Heart attack Codeine Other (See Comments) 01/14/2017 [place] jose eduardo flores ants crawling all over her Medications Medication Sig Dispensed Refills Start Date End Date Status levothyroxine Take 75 mcg by 0 A ctive (SYNTHROID, LEVOTHROID) mouth Every 75 MCG tablet morning on an empty stomach. bisoprolol (ZEBETA) 5 Take 5 mg by 0 Active MG tablet mouth daily. potassium chloride SA Take 15 mEq by 0 Active (KLOR-CON M15) 15 MEQ mouth 2 (two) tablet times daily. omega-3 fatty Take by mouth. 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
--- OUTSIDE RECORDS SUMMARY | 2020-10-09 04:49 | XMS REPORT | Continuity of Care Document ---
:1945 Author Organization [facility] t Address [address] [place] [address] Care Team Providers Name Role Phone Sharpless Primary Care Physician Doctor Unassigned, Name Attending Clinician Unavailable Isaías KISER Attending Clinician Jonny ESTRADA Attending Clinician Unavailable Jonny ESTRADA Admitting Clinician Unavailable Problems This patient has no known problems. Allergies, Adverse Reactions, Alerts Allergy Allergy Status Severity Reaction(s) Onset Inactive Treating Comm ents Source Name Type Date Date Clinician Caffeine Drug Active Anaphylaxis [facility] Codeine Drug Active Other (See [place] [facility] Comments) 01-14 [facility] all over Center her Social History Social Habit Start Date Stop Date Quantity Comments Source Sex Assigned At [facility] Alcohol intake 2017-04-04 2017-04-04 Current drinker [facility]00 of [facility] Center (finding) Alcohol Comment 2017-01-18 2017-01-18 rarely [facility] - 00:00:00 00:00:00 Medical Center Smoking Status Start Date Stop Date Source Never smoker [facility] Medications Ordered Filled Start Stop Current Ordering Indication Dosage Frequency Signature Comments Components Source Medication Medication Date Date Medication? Clinician (SIG) Name Name levothyroxi Yes 75ug Take [address] [facility] ne 7-13 mcg by [facility] - (SYNTHROID, 17:03: mouth Medic al LEVOTHROID) 43 Every Center 75 MCG morning on tablet an empty stomach. bisoprolol Yes 5mg QD Take [address] (ZEBETA) 5 7-13 by mouth [facility] - MG tablet 17:03: daily. Medica l 43 Center potassium 2017 Yes 15meq Q.5D Take [address] [facility] chloride SA 7-13 mEq by [facility] - (KLOR-CON 17:03: mouth 2 Medic al M15) 15 MEQ 43 (two) Center tablet times daily. omega-3 Yes Take by [facility] fatty 7-13 mouth. [facility] - acids-vitam 17:03: Medica l in E 1,000 43 Center mg Cap aspirin 81 Yes 81mg QD Take [address] MG EC 7-13 by [facility] - tablet 17:03: daily. Medical 43 Center niacin 100 Yes 100mg Take [address] MG tablet 7-13 mg by [facility] - 17:03: mouth Medical 43 daily with Center breakfast. Procedures This patient has no known procedures. Encounters Start End Encounter Admission Attending Care Care Encounter Source Date/Time Date/Time Type Type Clinicians Facility Department ID 2020-05-19 2020-05-19 Orders Doctor FLORIAN [id number] 00:00:00 00:00:00 Only Unassigned, GIOVANNI [id number] Elsa [facility] [id number] 2020-05-07 2020-05-09 Office Isaías [facility] [id number] 10:06:36 08:24:19 Visit Lashonda Rodriguez [id number] [place] [id number] Akhil [id number] [facility] 134 [facility] Results Test Description Test Time Test Comments Results Result [facility] e Comments TISSUE EXAM 2017-03-19 Surgical Pathology Report 8 10:41:00 Case: [id number] Authorizing Provider: Ibrahima Estrada MD Collected: 03/31/2017 1558 Ordering Location: [facility] OQMT Endoscopy Received: 04/01/2017 0811 Services Pathologist: Jourdan [...] is no high grade dysplasia or carcinoma. [id number] of small intestine, abnormal imaging study Ampulla [...] 2017-01-26 16:59:00 Test Item Value Reference Range Interpretation Comme nts LAB AP CPT CODE (MICHAEL) (test code = 2384) 07226
[2020-10-09 05:32] LABS: Urine Blood NEGATIVE (NEG); Urine Glucose NEGATIVE (NEG); Urine Protein NEGATIVE (NEG); Urine Specific Gravity 1.015 (1.005-1.030); Urine pH 6.5 (5.0-7.0)
[2020-10-09] MEDS ORDERED: FENTANYL CITR 100 MCG/2 ML ONE ×2 (05:42→07:46)
[2020-10-09] MEDS ORDERED: CEFTRIAXONE/SWI 1gm 1 GM/10 ML SYR ONE (05:42)
[2020-10-09] MEDS ORDERED: NA CHLORIDE 0.9% 500 ML ONE (05:42)
[2020-10-09] MEDS ORDERED: ONDANSETRON 4 MG/2 ML VIAL ONE (05:42)
[2020-10-09 05:49] LABS: Absolute Lymphocytes (CBC) 1.7 K/uL (0.7-4.9); Basophils % 0.9 % (0-1.3); Hematocrit 40.5 % (36.0-45.0); Lymphocytes % 18.8 % (15.3-44.8); MPV 10.9 fL (7.6-11.3); RBC Red Blood Cell Count 4.47 M/uL (3.86-4.86)
[2020-10-09 05:54] LABS: Protime INR 0.96
[2020-10-09 06:00] LABS: ALT/SGPT 37 U/L (12-78); AST/SGOT 26 U/L (15-37); Albumin 3.7 g/dL (3.4-5.0); Alkaline Phosphatase 137 U/L (45-117); BUN Blood Urea Nitrogen 23 mg/dL (7-18); Bicarbonate 29 mmol/L (21-32); Bilirubin Direct < 0.1 mg/dL (0-0.2); Bilirubin Total 0.5 mg/dL (0.2-1.0); Glucose Level 108 mg/dL (74-106); Lipase 258 U/L (73-393); Magnesium 2.4 mg/dL (1.8-2.4); NT PRO-BNP 99 pg/mL (<125); Potassium 4.1 mmol/L (3.5-5.1); Protein, Total 7.5 g/dL (6.4-8.2); Sodium Level 142 mmol/L (136-145); Troponin (Emerg Dept Use Only) < 0.02 ng/mL (0.0-0.045)
--- NOTE | 2020-10-09 07:21 | EDPHYS ---
Physician Documentation [facility] Name: Toña Serrano Age: 75 yrs Sex: Female : 1945 Arrival Date: 10/09/2020 Time: 04:54 Bed 5 Private MD: Eduardo Murguia E ED Physician Haja Leos HPI: 10/09 05:20 This 75 yrs old Female presents to ER via Wheelchair with complaints of Flank claudia Pain. 05:20 The patient complains of pain in the right mid back and right low back. Location: right claudia mid back and right low back. Onset: The symptoms/episode began/occurred 5 day(s) ago. Modifying factors: The symptoms are alleviated by nothing. the symptoms are aggravated by nothing. Associated signs and symptoms: The patient has no apparent associated signs or symptoms. Severity of pain: At its worst the pain was moderate in the emergency department the pain is unchanged. Historical: - Allergies: 05:09 codeine sulfate; mg2 05:09 caffeine; mg2 - Home Meds: 05:09 aspirin 81 mg Oral chew 1 tab once daily [Active]; bisoprolol-hydrochlorothiazide mg2 5-6.25 mg Oral tab 1 tab once daily [Active]; levothyroxine 75 mcg tab 1 tab once daily [Active]; Melatonin Oral [Active]; Potassium Chloride Oral [Active]; Vitamin B-12 2500 mcg Oral tab daily [Active]; Vitamin D3 Oral [Active]; - PMHx: 05:09 Arthritis; Colon Polyps; Hypertension; Myocardial infarction; skin cancer; mg2 - PSHx: 05:09 colostomy; mg2 - Immunization history:: Flu vaccine is up to date. - Social history:: Smoking status: Patient denies any tobacco usage or history of. Patient/guardian denies using alcohol, street drugs, IV drugs. - Family history:: not pertinent. ROS: 05:20 Constitutional: Negative for fever, chills, and weight loss, Eyes: Negative for injury, claudia pain, redness, and discharge, ENT: Negative for injury, pain, and discharge, Neck: Negative for injury, pain, and swelling, Cardiovascular: Negative for chest pain, palpitations, and edema, Respiratory: Negative for shortness of breath, cough, wheezing, and pleuritic chest pain, Back: Negative for injury and pain, : Negative for injury, bleeding, discharge, and swelling, MS/Extremity: Negative for injury and deformity, Skin: Negative for injury, rash, and discoloration, Neuro: Negative for headache, weakness, numbness, tingling, and seizure, Psych: Negative for depression, anxiety, suicide ideation, homicidal ideation, and hallucinations, Allergy/Immunology: Negative for hives, rash, and allergies, Endocrine: Negative for neck swelling, polydipsia, polyuria, polyphagia, and marked weight changes, Hematologic/Lymphatic: Negative for swollen nodes, abnormal bleeding, and unusual bruising. 05:20 Abdomen/GI: Positive for abdominal pain, abdominal cramps, abdominal distension, of the posterior aspect of right lateral abdomen, anterior aspect of right lateral abdomen, right upper quadrant and right lower quadrant. Exam: 05:20 Constitutional: This is a well developed, well nourished patient who is awake, alert, claudia and in no acute distress. Head/Face: Normocephalic, atraumatic. Eyes: Pupils equal round and reactive to light, extra-ocular motions intact. Lids and lashes normal. Conjunctiva and sclera are non-icteric and not injected. Cornea within normal limits. Periorbital areas with no swelling, redness, or edema. ENT: Nares patent. No nasal discharge, no septal abnormalities noted. Tympanic membranes are normal and external auditory canals are clear. Oropharynx with no redness, swelling, or masses, exudates, or evidence of obstruction, uvula midline. Mucous membranes moist. Neck: Trachea midline, no thyromegaly or masses palpated, and no cervical lymphadenopathy. Supple, full range of motion without nuchal rigidity, or vertebral point tenderness. No Meningismus. Chest/axilla: Normal chest wall appearance and motion. Nontender with no deformity. No lesions are appreciated. Cardiovascular: Regular rate and rhythm with a normal S1 and S2. No gallops, murmurs, or rubs. Normal PMI, no JVD. No pulse deficits. Respiratory: Lungs have equal breath sounds bilaterally, clear to auscultation and percussion. No rales, rhonchi or wheezes noted. No increased work of breathing, no retractions or nasal flaring. Female : Normal external genitalia. Skin: Warm, dry with normal turgor. Normal color with no rashes, no lesions, and no evidence of cellulitis. MS/ Extremity: Pulses equal, no cyanosis. Neurovascular intact. Full, normal range of motion. Neuro: Awake and alert, GCS 15, oriented to person, place, time, and situation. Cranial nerves II-XII grossly intact. Motor strength 5/5 in all extremities. Sensory grossly intact. Cerebellar exam normal. Normal gait. Psych: Awake, alert, with orientation to person, place and time. Behavior, mood, and affect are within normal limits. 05:20 Abdomen/GI: Inspection: abdomen appears normal, Bowel sounds: normal, Palpation: abdomen is soft and non-tender, Liver: no appreciated palpable abnormalities, Hernia: not appreciated. 05:20 Musculoskeletal/extremity: DVT Exam: No signs of deep vein thrombosis. no pain, no swelling, no tenderness, negative Homans' sign noted on exam, no appreciated bluish discoloration, no erythema, no increased warmth. 06:52 ECG was reviewed by the Attending Physician. [facility] 07:08 Skin: no rash present. claudia Vital Signs: 05:04 BP 150 / 73; Pulse 66; Resp 18; Temp 98.3; Pulse Ox 100% on R/A; Weight 72.12 kg; mg2 Height 4 ft. 7 in. (139.70 cm); Pain 10/10; 07:20 BP 123 / 73; Pulse 63; Resp 18; Pulse Ox 99% on R/A; em 05:04 Body Mass Index 36.95 (72.12 kg, 139.70 cm) mg2 MDM: 05:03 Patient medically screened. claudia 05:23 Differential diagnosis: nephrolithiasis, UTI, diverticulitis, pancreatitis. Data [facility] reviewed: vital signs, nurses notes, long-term records, lab test result(s). Data interpreted: patient monitor: rate is 66 beats/min, rhythm is regular, Pulse oximetry: on room air is 100 %. Test interpretation: by ED physician or midlevel provider: ECG, plain radiologic studies. Counseling: I had a detailed discussion with the patient and/or guardian regarding: the historical points, exam findings, and any diagnostic results supporting the discharge/admit diagnosis, the presence of at least one elevated blood pressure reading (>120/80) during this emergency department visit, lab results, radiology results. 10/09 05:15 Order name: Urine Dipstick--Ancillary (enter results); Complete Time: 05:58 10/09 05:20 Order name: Basic Metabolic Panel; Complete Time: 06:[address] [facility] 10/09 05:20 Order name: CBC with Diff; Complete Time: 06:[address] [facility] 10/09 05:20 Order name: LFT's; Complete Time: 06:[address] [facility] 10/09 05:20 Order name: Magnesium; Complete Time: 06:[address] [facility] 10/09 05:20 Order name: NT PRO-BNP; Complete Time: 06:[address] [facility] 10/09 05:20 Order name: PT-INR; Complete Time: 06:[address] [facility] 10/09 05:20 Order name: Troponin (emerg Dept Use Only); Complete Time: 06:[address] [facility] 10/09 05:20 Order name: XRAY Chest (1 view) [facility] 10/09 05:20 Order name: Lipase; Complete Time: 06:[address] [facility] 10/09 05:20 Order name: Urine Culture [facility] 10/09 05:20 Order name: CT Aorta for Dissection [facility] 10/09 05:20 Order name: EKG; Complete Time: 05:[address] [facility] 10/09 05:20 Order name: Cardiac monitoring; Complete Time: 05:[address] [facility] 10/09 05:20 Order name: EKG - Nurse/Tech; Complete Time: 06:[address] [facility] 10/09 05:20 Order name: IV Saline Lock; Complete Time: 05:[address] [facility] 10/09 05:20 Order name: Labs collected and sent; Complete Time: 05:[address] [facility] 10/09 05:20 Order name: O2 Per Protocol; Complete Time: 05:[address] [facility] 10/09 05:20 Order name: O2 Sat Monitoring; Complete Time: 05:[address] [facility] 10/09 05:20 Order name: Urine Dipstick-Ancillary (obtain specimen); Complete Time: 05:[address] [facility] EC:52 Rate is 62 beats/min. Rhythm is regular. QRS [place] is Normal. [place] interval is normal. QRS claudia interval is normal. QT interval is normal. No Q waves. T waves are Inverted in leads I, aVL, V1, V2, V3, V4. Clinical impression: No evidence of ischemia. Reviewed by me. Administered Medications: 05:31 Drug: NS 0.9% 500 ml Route: IV; Rate: bolus; Site: right antecubital; rv 07:45 Follow up: IV Status: Completed infusion; IV Intake: 500ml em 05:31 Drug: fentaNYL (PF) 25 mcg {Note: rass 0.} Route: IVP; Site: right antecubital; rv 07:11 Follow up: Response: No adverse reaction; Marked relief of symptoms em 05:31 Drug: Zofran (Ondansetron) 4 mg Route: IVP; Site: right antecubital; rv 07:11 Follow up: Response: No adverse reaction em 05:44 Drug: Rocephin 1 grams Route: IV; Rate: per protocol; Site: right antecubital; rv 07:45 Follow up: Response: No adverse reaction; IV Status: Completed infusion; IV Intake: 10mlem 07:37 Drug: fentaNYL (PF) 25 mcg Route: IVP; Site: right antecubital; em 07:44 Follow up: Response: Medication administered at discharge. em 07:38 Drug: Cipro 500 mg Route: PO; em 07:44 Follow up: Response: Medication administered at discharge. em 07:38 Drug: traMADol 50 mg Route: PO; em 07:44 Follow up: Response: Medication administered at discharge. em Disposition: 10/09/20 07:20 Discharged to Home. Impression: Urinary tract infection, site not specified, Abdominal tenderness, Colostomy status. - Condition is Stable. - Discharge Instructions: Abdominal Pain, Adult, Dysuria, Urinary Tract Infection, Adult, Urinary Tract Infection, Adult, Lbwe-[id number], Abdominal Pain, Adult, Elxo-is-Mzmu, Colostomy, Adult, Care After. - Prescriptions for Bentyl 20 mg Oral Tablet - take 1 tablet by ORAL route every 6 hours As needed; 20 tablet. Cipro 250 mg Oral Tablet - take 1 tablet by ORAL route every 12 hours; 14 tablet. Tramadol 50 mg Oral Tablet - take 1 tablet by ORAL route every 6 hours as needed; 24 tablet. - Medication Reconciliation Form, Thank You Letter, Antibiotic Education, Prescription Opioid Use form. - Follow up: Eduardo Murguia MD; When: 2 - 3 days; Reason: Recheck today's complaints, Continuance of care, Re-evaluation by your physician. - Problem is new. - Symptoms have improved. Signatures: Dispatcher [employer] Haja Dewitt MD MD cha Munoz, Edgar RN RN em Flavio Draper RN RN [facility] Brown, Leo, RN RN rv Corrections: (The following items were deleted from the chart) 07:47 07:20 10/09/2020 07:20 Discharged to Home. Impression: Urinary tract infection, site em not specified; Abdominal tenderness; Colostomy status. Condition is Stable. Forms are Medication Reconciliation Form, Thank You Letter, Antibiotic Education, Prescription Opioid Use. Follow up: Eduardo Murguia; When: 2 - 3 days; Reason: Recheck today's complaints, Continuance of care, Re-evaluation by your physician. Problem is new. Symptoms have improved. claudia
--- NOTE | 2020-10-09 07:21 | ER ---
Nurse's Notes [facility] Name: Toña Serrano Age: 75 yrs Sex: Female : 1945 Arrival Date: 10/09/2020 Time: 04:54 Bed 5 Private MD: Eduardo Murguia E Diagnosis: Urinary tract infection, site not specified;Abdominal tenderness;Colostomy status Presentation: 10/09 05:04 Chief complaint: Patient's son or daughter states: she is here for right L abdominal mg2 pain radiating to the right flank.she was at her PCP yesterday, CT and lab work was done and they said she has air pockets . Coronavirus screen: Client denies travel out of the [place] in the last 14 days. At this time, the client does not indicate any symptoms associated with coronavirus-19. Ebola Screen: No symptoms or risks identified at this time. Initial Sepsis Screen: Does the patient meet any 2 criteria? No. Patient's initial sepsis screen is negative. Does the patient have a suspected source of infection? No. Patient's initial sepsis screen is negative. Risk Assessment: Do you want to hurt yourself or someone else? Patient reports no desire to harm self or others. Onset of symptoms was October 09, 2020. 05:04 Method Of Arrival: Wheelchair mg2 05:04 Acuity: MILO 3 mg2 Triage Assessment: 05:09 General: Appears uncomfortable, Behavior is calm, cooperative. Pain: Complains of pain mg2 in abdomen Pain radiates to back Pain currently is 10 out of 10 on a pain scale. Quality of pain is described as aching, Pain began gradually, Is intermittent. EENT: No signs and/or symptoms were reported regarding the EENT system. Neuro: Level of Consciousness is awake, alert, obeys commands, Oriented to person, place, time, situation. Cardiovascular: Capillary refill < 3 seconds Patient's skin is warm and dry. Respiratory: Airway is patent Respiratory effort is even, unlabored, Respiratory pattern is regular, symmetrical. GI: Reports lower abdominal pain. : Reports pain in right in suprapubic area flank(s). Derm: Skin is intact, is healthy with good turgor, Skin is pink, warm \T\ dry. normal. Musculoskeletal: Circulation, motion, and sensation intact. Capillary refill < 3 seconds. Historical: - Allergies: 05:09 codeine sulfate; mg2 05:09 caffeine; mg2 - Home Meds: 05:09 aspirin 81 mg Oral chew 1 tab once daily [Active]; bisoprolol-hydrochlorothiazide mg2 5-6.25 mg Oral tab 1 tab once daily [Active]; levothyroxine 75 mcg tab 1 tab once daily [Active]; Melatonin Oral [Active]; Potassium Chloride Oral [Active]; Vitamin B-12 2500 mcg Oral tab daily [Active]; Vitamin D3 Oral [Active]; - PMHx: 05:09 Arthritis; Colon Polyps; Hypertension; Myocardial infarction; skin cancer; mg2 - PSHx: 05:09 colostomy; mg2 - Immunization history:: Flu vaccine is up to date. - Social history:: Smoking status: Patient denies any tobacco usage or history of. Patient/guardian denies using alcohol, street drugs, IV drugs. - Family history:: not pertinent. Screenin:11 Abuse screen: Denies threats or abuse. Denies injuries from another. Nutritional mg2 screening: No deficits noted. Tuberculosis screening: No symptoms or risk factors identified. Fall Risk IV access (20 points). Assessment: 05:11 General: see triage note. mg2 07:20 Reassessment: Patient appears in no apparent distress at this time. Patient and/or em family updated on plan of care and expected duration. Pain level reassessed. Patient is alert, oriented x 3, equal unlabored respirations, skin warm/dry/pink. Vital Signs: 05:04 BP 150 / 73; Pulse 66; Resp 18; Temp 98.3; Pulse Ox 100% on R/A; Weight 72.12 kg; mg2 Height 4 ft. 7 in. (139.70 cm); Pain 10/10; 07:20 BP 123 / 73; Pulse 63; Resp 18; Pulse Ox 99% on R/A; em 05:04 Body Mass Index 36.95 (72.12 kg, 139.70 cm) mg2 ED Course: 04:54 Patient arrived in ED. es 04:55 Eduardo Murguia MD is Private Physician. es 04:57 Leo Dasilva RN is Primary Nurse. rv 05:03 Haja Leos MD is Attending Physician. claudia 05:08 Triage completed. mg2 05:10 Arm band placed on. mg2 05:11 Patient has correct armband on for positive identification. Pulse ox on. NIBP on. Door mg2 closed. Warm blanket given. 05:11 No provider procedures requiring assistance completed. mg2 05:22 Inserted saline lock: 20 gauge in right antecubital area, using aseptic technique. rv Blood collected. 05:22 Initial lab(s) drawn, by me, sent to lab. rv 06:19 XRAY Chest (1 view) In Process Unspecified. EDMS 06:26 CT Aorta for Dissection In Process Unspecified. EDMS 07:16 Primary Nurse role handed off by Leo Dasilva, [place] bd 07:19 Eduardo Murguia MD is Referral Physician. [facility] 07:22 Damien Bryant, [place] is Primary Nurse. em 07:46 IV discontinued, intact, bleeding controlled, No redness/swelling at site. Pressure em dressing applied. Administered Medications: 05:31 Drug: NS 0.9% 500 ml Route: IV; Rate: bolus; Site: right antecubital; rv 07:45 Follow up: IV Status: Completed infusion; IV Intake: 500ml em 05:31 Drug: fentaNYL (PF) 25 mcg {Note: rass 0.} Route: IVP; Site: right antecubital; rv 07:11 Follow up: Response: No adverse reaction; Marked relief of symptoms em 05:31 Drug: Zofran (Ondansetron) 4 mg Route: IVP; Site: right antecubital; rv 07:11 Follow up: Response: No adverse reaction em 05:44 Drug: Rocephin 1 grams Route: IV; Rate: per protocol; Site: right antecubital; rv 07:45 Follow up: Response: No adverse reaction; IV Status: Completed infusion; IV Intake: 10mlem 07:37 Drug: fentaNYL (PF) 25 mcg Route: IVP; Site: right antecubital; em 07:44 Follow up: Response: Medication administered at discharge. em 07:38 Drug: Cipro 500 mg Route: PO; em 07:44 Follow up: Response: Medication administered at discharge. em 07:38 Drug: traMADol 50 mg Route: PO; em 07:44 Follow up: Response: Medication administered at discharge. em Intake: 07:45 IV: 500ml; Total: 500ml. em 07:45 IV: 10ml; Total: 510ml. em Outcome: 07:20 Discharge ordered by . claudia 07:45 Discharged to home via wheelchair, with family. em 07:45 Condition: stable 07:45 Discharge instructions given to patient, family, Instructed on discharge instructions, follow up and referral plans. no drinking with medication, no driving heavy equipment, medication usage, Demonstrated understanding of instructions, follow-up care, medications, Prescriptions given X 2. 07:47 Patient left the ED. em Signatures: Dispatcher [employer] EDMS Natacha Whalen Corey, MD MD cha Salyer, Damien Cantor, RN RN em Flavio Draper RN RN mg2 Leo Dasilva RN RN rv
[2020-10-09] MEDS ORDERED: TRAMADOL HCL 50 MG TAB ONE (07:44)
[2020-10-09] MEDS ORDERED: CIPROFLOXACIN HCL 500 MG TAB ONE (07:45)
[2020-10-09 07:51] VITALS: TEMP 98.3
[2020-10-09 07:52] VITALS: BP 123/73; O2SAT 99
--- NOTE | 2020-10-09 08:58 | RAD REPORT ---
EXAM DESCRIPTION: RAD - Chest Single View - 10/09/2020 6:19 am CLINICAL HISTORY: Abdominal distention;Pain COMPARISON: Two view chest November 2018 TECHNIQUE: AP portable chest image was obtained 10/09/2020 6:19 am . FINDINGS: Lungs are clear. Left base is partially obscured by portable technique and overlying promi nent soft tissues. No significant failure or volume overload findings. Heart and vasculature are norm al. No measurable pleural effusion and no pneumothorax. No acute bony abnormality seen. No acute aort ic findings suspected. IMPRESSION: No acute cardiopulmonary process. Left base assessment is limited.
--- NOTE | 2020-10-10 12:44 | RAD REPORT ---
EXAM DESCRIPTION: CT - Angio Aorta For Dissection - 10/09/2020 7:10 am CLINICAL HISTORY: Pain;PE;Dissection COMPARISON: 10/08/2020 TECHNIQUE: CTA of the chest, abdomen and pelvis performed following IV administration of iodinated c ontrast.. 3-D/MIP reformatted images available FINDINGS: Chest: Thyroid: No abnormalities of the visualized thyroid. Great Vessels: Great vessels have normal anatomic configuration. Thoracic Aorta: Normal caliber thoracic aorta without evidence of dissection. Atherosclerotic calcifi cation. Pulmonary arteries: The main pulmonary artery is not dilated. Heart: Coronary artery atherosclerosis. No cardiomegaly or significant pericardial effusion. Lymph Nodes: No enlarged mediastinal lymph nodes identified. Esophagus: No abnormalities of the esophagus identified Other: No additional findings. Lungs: Minimal left basilar discoid atelectasis. No confluent airspace elevation. Pleura: No pleural effusion or pneumothorax. Trachea/Airways: No acute abnormality of the trachea. Abdomen: Liver: Decreased density of the liver. Small right hepatic cyst. Air within the biliary system. Gallbladder: Prior cholecystectomy. Spleen, Pancreas, and Adrenal Glands: The spleen, pancreas, and adrenal glands are unremarkable. Kidneys: Prior left nephrectomy. No right-sided hydronephrosis. Vasculature: Normal caliber abdominal aorta with aortoiliac aortoiliac atherosclerosis. There is in l ine flow into the common iliac, external iliac, common femoral, and proximal superficial femoral demetria lamont. Proximal profunda femoral arteries are patent. The internal iliac arteries are patent. The ce liac and superior mesenteric arteries are patent. The inferior mesenteric artery is not identified wh ich may be related to prior colectomy. The renal arteries are patent. Stomach: The stomach and duodenum have normal course. Other: No free intraperitoneal air. No free fluid or lymphadenopathy. Pelvis: Bladder: Urinary bladder is unremarkable. Bowel: No dilated loops of bowel. Right ventral ostomy. Prior colectomy. Appendix: Not identified. Pelvis: Uterus is not enlarged. Bones: Multilevel degenerative disc height narrowing, endplate spondylosis, and facet arthropathy of the visualized spine. IMPRESSION: 1. No evidence of aortic dissection. No pulmonary embolus. 2. Coronary artery atherosclerosis. 3. Stable pneumobilia post cholecystectomy. 4. Hepatic steatosis. This exam was performed according to our departmental dose-optimization program, which includes autom ated exposure control, adjustment of the mA and/or kV according to patient size and/or use of iterati ve reconstruction technique. Electronically signed by: Blake Almaguer 10/09/2020 6:44 AM [employer] Due to temporary technical issues with the PACS/Fluency reporting system, reports are being signed by the in house radiologist without review as a courtesy to ensure prompt reporting. The interpreting r adiologist is fully responsible for the content of the report.
== END 2020-10-09 07:47 | disposition home or self-care (01) ==
LOC: ER 04:46
DX: N39.0 Urinary tract infection, site not specified (principal); Z93.3 Colostomy status; I10 Essential (primary) hypertension; I25.2 Old myocardial infarction; Z79.82 Long term (current) use of aspirin; Z88.5 Allergy status to narcotic agent; Z91.018 Allergy to other foods
CPT/HCPCS: 96365; 87088; 85025; 87086; 80048; 36415; 83735; 85610; 80076; 81003; 84484; 83690; 83880; 71275; 74175; 71045; 96375; 99284; 96366; Q9967; J3010 ×2; J0696; J7040; J2405; 93005

== ENCOUNTER 2024-03-07 10:14 | Emergency (ER) | payer OTHER ==
[2024-03-07 11:08] LABS: Absolute Basophils 0.1 K/uL (0-0.5); Absolute Eosinophils 0.2 K/uL (0-0.5); Absolute Lymphocytes (CBC) 1.5 K/uL (0.7-4.9); Absolute Monocytes 0.7 K/uL (0.1-1.3); Basophils % 0.7 % (0-1.3); Eosinophils % 1.6 % (0-4.4); Hematocrit 39.1 % (36.0-45.0); Hemoglobin 13.2 g/dL (12.0-15.0); Lymphocytes % 14.7 % (15.3-44.8); MCH 30.4 pg (27.0-35.0); MCHC 33.7 g/dL (32.0-36.0); MCV 90.1 fL (80-100); MPV 9.9 fL (7.6-11.3); Monocytes % 6.6 % (3.3-12.3); Neutrophils % 76.4 % (41.7-73.7); Platelets 256 thou/uL (152-406); RBC Red Blood Cell Count 4.34 M/uL (3.86-4.86); Red Cell Distribution Width 14.8 % (12.1-15.2)
[2024-03-07 11:13] LABS: PT Prothrombin Time 12.2 SECONDS (9.5-12.5); Protime INR 1.11
--- NOTE | 2024-03-07 11:18 | RAD REPORT ---
EXAM DESCRIPTION: CTAbdomen Pelvis W Contrast - 03/07/2024 11:06 am CLINICAL HISTORY: Abdominal pain. ABD PAIN COMPARISON: Abdomen Pelvis W Contrast dated 08/16/2019; Abdomen Pelvis W Contrast dated 8; Angio Aorta For Dissection dated 10/09/2020 TECHNIQUE: Venous phase CT imaging of the abdomen and pelvis was performed with 100 ml non-ionic IV contrast. All CT scans are performed using dose optimization technique as appropriate and may include automated exposure control or mA/KV adjustment according to patient size. FINDINGS: Mild linear atelectasis is present left lung base.Mild cardiomegaly. Mild pneumobilia is present in the liver. No aggressive liver lesion seen. No intra or extrahepatic b iliary tree dilatation. The spleen, pancreas, adrenal glands and right kidney are normal. Absent left kidney. Multiple mildly to moderately dilated small bowel loops up to 3 cm are present which may represent mi ld bowel obstruction or ileus. No pneumoperitoneum or abscess. No pathologic free fluid collections. Right lower quadrant ostomy is noted. No evidence of significant lymphadenopathy. Prominent lumbosacral degenerative changes. IMPRESSION: Dilated small bowel loops are present in the central abdomen up to 3 cm in dimension. Th is may represent a mild partial mechanical obstruction or adynamic ileus. No free air or abscess. Right lower quadrant ostomy noted.
[2024-03-07 11:31] LABS: Albumin 3.6 g/dL (3.4-5.0); Albumin/Globulin Ratio 1.1 (1.1-1.8); Anion Gap 7.3 mEq/L (5.0-15.0); Bilirubin Direct 0.3 mg/dL (0-0.2); Bilirubin Indirect, Calculated 0.5 mg/dL (0.2-0.8); Bilirubin Total 0.8 mg/dL (0.2-1.0); Globulin 3.4 g/dL (2.3-3.5); Magnesium 2.2 mg/dL (1.6-2.4); Potassium 3.3 mEq/L (3.5-5.1); Troponin High Sensitivity 5.1 pg/mL (<58.9)
[2024-03-07] MEDS ORDERED: ONDANSETRON 4 MG/2 ML VIAL ONE (11:48)
[2024-03-07] MEDS ORDERED: MORPHINE 4 MG/ML SYR ONE (11:49)
[2024-03-07] MEDS ORDERED: KETOROLAC 30 MG/ML INJ ONE (12:00)
[2024-03-07 13:09] VITALS: BP 130/66; TEMP 97.8; O2SAT 98
--- NOTE | 2024-03-07 15:07 | EDPHYS ---
Physician Documentation [facility] Name: Toña Serrano Age: 78 yrs Sex: Female : 1945 Arrival Date: 03/07/2024 Time: 10:14 Bed 8 Private MD: ED Physician Mary Weaver HPI: 03/07 11:35 This 78 yrs old Female presents to ER via EMS with complaints of abdominal sp3 pain and increased ostomy output. 11:35 78-year-old female with history of colonic polyps status post total colectomy in 1978, sp3 hypertension, prior CO presents to the ED with chief complaint diffuse upper abdominal pain and increased ostomy output without blood or mucus. She states that the cramping comes in waves and she is worried about her pancreas. She is status post cholecystectomy as well. Review of systems negative for headache, fever, URI symptoms, chest pain, shortness of breath, neck pain, back pain, syncope, near syncope, rash, bleeding, dysuria, urinary frequency, known sick contacts, travel history, prolonged immobilization, or any other signs or symptoms on ROS at this time.. Historical: - Allergies: 10:50 caffeine; rs5 10:50 codeine sulfate; rs5 - PMHx: 10:50 Colon Polyps; Hypertension; Myocardial infarction; Arthritis; skin cancer; rs5 - PSHx: 10:50 left kidney removal (skin cancer); Appendectomy; Cholecystectomy; Colostomy; rs5 - Immunization history:: Adult Immunizations up to date. - Infectious Disease History:: Denies. - Social history:: Smoking status: Patient denies any tobacco usage or history of. ROS: 11:36 Constitutional: Negative for fever, chills, and weight loss, Eyes: Negative for injury, sp3 pain, redness, and discharge, ENT: Negative for injury, pain, and discharge, Neck: Negative for injury, pain, and swelling, Cardiovascular: Negative for chest pain, palpitations, and edema, Respiratory: Negative for shortness of breath, cough, wheezing, and pleuritic chest pain, Back: Negative for injury and pain, MS/Extremity: Negative for injury and deformity, Skin: Negative for injury, rash, and discoloration, Neuro: Negative for headache, weakness, numbness, tingling, and seizure, Psych: Negative for depression, anxiety, suicide ideation, homicidal ideation, and hallucinations, Allergy/Immunology: Negative for hives, rash, and allergies, Endocrine: Negative for neck swelling, polydipsia, polyuria, polyphagia, and marked weight changes, Hematologic/Lymphatic: Negative for swollen nodes, abnormal bleeding, and unusual bruising, 11:36 All other systems are negative, Exam: 11:36 Constitutional: This is a well developed, well nourished patient who is awake, alert, sp3 and in no acute distress. Head/Face: Normocephalic, atraumatic. Eyes: Pupils equal round and reactive to light, extra-ocular motions intact. Lids and lashes normal. Conjunctiva and sclera are non-icteric and not injected. Cornea within normal limits. Periorbital areas with no swelling, redness, or edema. ENT: Nares patent. No nasal discharge, no septal abnormalities noted. External auditory canals are clear. Oropharynx with no redness, swelling, or masses, exudates, or evidence of obstruction, uvula midline. Mucous membranes moist. Neck: Trachea midline, no thyromegaly or masses palpated, and no cervical lymphadenopathy. Supple, full range of motion without nuchal rigidity, or vertebral point tenderness. No Meningismus. Chest/axilla: Normal chest wall appearance and motion. Nontender with no deformity. No lesions are appreciated. Cardiovascular: Regular rate and rhythm with a normal S1 and S2. No gallops, murmurs, or rubs. Normal PMI, no JVD. No pulse deficits. Respiratory: Lungs have equal breath sounds bilaterally, clear to auscultation and percussion. No rales, rhonchi or wheezes noted. No increased work of breathing, no retractions or nasal flaring. Back: No spinal tenderness. No costovertebral tenderness. Full range of motion. Skin: Warm, dry with normal turgor. Normal color with no rashes, no lesions, and no evidence of cellulitis. MS/ Extremity: Pulses equal, no cyanosis. Neurovascular intact. Full, normal range of motion. Neuro: Awake and alert, GCS 15, oriented to person, place, time, and situation. Cranial nerves II-XII grossly intact. Motor strength 5/5 in all extremities. Sensory grossly intact. Cerebellar exam normal. Normal gait. Psych: Awake, alert, with orientation to person, place and time. Behavior, mood, and affect are within normal limits. 11:37 Abdomen/GI: Mild pain to palpation in the upper quadrants without peritoneal signs, sp3 rebound or guarding. Ostomy bag with positive output without melena, blood or mucus., 12:19 ECG was reviewed by the Attending Physician. EKG demonstrates normal sinus rhythm at 64 sp3 bpm with normal intervals, normal QRS, normal axis, nonspecific ST/T segments without evidence of acute ischemia. Vital Signs: 10:48 BP 154 / 76; Pulse 77; Resp 17; Temp 97.8(O); Pulse Ox 98% ; rs5 12:16 BP 130 / 66; Pulse 63; Resp 18; Pulse Ox 98% on R/A; ld1 MDM: 10:49 Patient medically screened. sp3 11:37 Data reviewed: vital signs, nurses notes, lab test result(s), radiologic studies. ED sp3 course: 78-year-old female with PMH above status post colectomy now with epigastric pain. Differential diagnosis includes pancreatitis, gastritis, colitis, among others. I am not highly suspicious for sepsis, shock, acute abdomen or any other critical process at this time. Workup will include CT scan of the abdomen pelvis, laboratory values and general observation. Disposition pending workup and patient course. Vital signs are within normal limits and patient appears stable at this time.. 12:27 ED course: Full CT scan negative and all laboratory values demonstrate no significant sp3 abnormality. Patient is having stool output. However she states that her pain is epigastric. Cardiac evaluation is also negative. She also states that she has seen a global engineering manager multiple times in which gets a "clean bill". She has a appointment with her sewing techniques demonstrator in 1 week. She also states that she has been to multiple hospitals and "they can never find anything". She has had negative scans and workups at [facility] and [facility]. We will safely discharged home at this time on p.o. Bentyl.. 03/07 10:49 Order name: Basic Metabolic Panel; Complete Time: 11:34 sp3 03/07 10:49 Order name: CBC with Diff; Complete Time: 11:23 sp3 03/07 10:49 Order name: LFT's; Complete Time: 11:34 sp3 03/07 10:49 Order name: Magnesium; Complete Time: 11:34 sp3 03/07 10:49 Order name: NT PRO-BNP; Complete Time: 11:34 sp3 03/07 10:49 Order name: PT-INR; Complete Time: 11:23 sp3 03/07 10:49 Order name: Troponin HS; Complete Time: 11:34 sp3 03/07 11:34 Order name: Lipase; Complete Time: 12:20 sp3 03/07 11:34 Order name: Add On-Lab sp3 03/07 10:49 Order name: CT Abd/Pelvis - IV Contrast Only; Complete Time: 11:23 sp3 03/07 10:49 Order name: Cardiac monitoring; Complete Time: 12:15 sp3 03/07 10:49 Order name: EKG - Nurse/Tech; Complete Time: 12:15 sp3 03/07 10:49 Order name: IV Saline Lock; Complete Time: 12:15 sp3 03/07 10:49 Order name: Labs collected and sent; Complete Time: 12:15 sp3 03/07 10:49 Order name: O2 Per Protocol; Complete Time: 12:15 sp3 03/07 10:49 Order name: O2 Sat Monitoring; Complete Time: 12:15 sp3 Administered Medications: 12:28 Not Given (Patient Refused): morphineor iv 4 mg IVP once over 4 mins ld1 12:28 Not Given (Patient Refused): ondansetron 4 mg IVP once; over 2 minutes ld1 Disposition Summary: 03/07/24 12:28 Discharge Ordered Notes: Location: Home sp3 Condition: Stable sp3 Diagnosis - Abdominal pain, Generalized sp3 Followup: sp3 - With: Private Physician - When: Upon discharge from the Emergency Department - Reason: Continuance of care Discharge Instructions: - Discharge Summary Sheet sp3 - Abdominal Pain, Adult sp3 Forms: - Medication Reconciliation Form sp3 - Antibiotic Education sp3 - Prescription Opioid Use sp3 - Patient Portal Instructions sp3 - Leadership Thank You Letter sp3 Prescriptions: - dicyclomine 10 mg Oral capsule - take 1 capsule ORAL route 3 times per day; 20 capsule; Refills: 0, Product sp3 Selection Permitted Signatures: Dispatcher [employer] Mary Villanueva MD MD sp3 Arron Rangel RN RN rs5 Marcie Aguilar RN ld1 Corrections: (The following items were deleted from the chart) 10:50 10:50 BASIC METABOLIC PANEL+C.LAB.BRZ ordered. EDMS EDMS 10:50 10:50 CBC+H.LAB.BRZ ordered. EDMS EDMS 10:50 10:50 HEPATIC FUNCTION+C.LAB.BRZ ordered. EDMS EDMS 10:50 10:50 MAGNESIUM+C.LAB.BRZ ordered. EDMS EDMS 10:50 10:50 PROBNP+C.LAB.BRZ ordered. EDMS EDMS 10:50 10:50 PROTIME (+INR)+COAG.LAB.BRZ ordered. EDMS EDMS 10:50 10:50 Troponin High Sensitivity+C.LAB.BRZ ordered. EDMS EDMS 10:50 10:50 Abdomen Pelvis W Con+CT.RAD.BRZ ordered. EDMS EDMS
--- NOTE | 2024-03-07 15:07 | ER ---
Nurse's Notes [facility] Name: Toña Serrano Age: 78 yrs Sex: Female : 1945 Arrival Date: 03/07/2024 Time: 10:14 Bed 8 Private MD: Diagnosis: Abdominal pain, Generalized Presentation: 03/07 10:48 Chief complaint: EMS states: N/V, diarrhea, and intermittent epigastric pain that rs5 started 03/04/24. Coronavirus screen: At this time, the client does not indicate any symptoms associated with coronavirus-19. Ebola Screen: No symptoms or risks identified at this time. Initial Sepsis Screen: Does the patient meet any 2 criteria? No. Patient's initial sepsis screen is negative. Does the patient have a suspected source of infection? No. Patient's initial sepsis screen is negative. Risk Assessment: Do you want to hurt yourself or someone else? Patient reports no desire to harm self or others. Onset of symptoms was March 07, 2024. 10:48 Method Of Arrival: EMS: [facility] rs5 10:48 Acuity: MILO 3 rs5 Triage Assessment: 10:50 General: Appears in no apparent distress. uncomfortable, Behavior is calm, cooperative. rs5 Pain: Complains of pain in abdomen. Historical: - Allergies: 10:50 caffeine; rs5 10:50 codeine sulfate; rs5 - PMHx: 10:50 Colon Polyps; Hypertension; Myocardial infarction; Arthritis; skin cancer; rs5 - PSHx: 10:50 left kidney removal (skin cancer); Appendectomy; Cholecystectomy; Colostomy; rs5 - Immunization history:: Adult Immunizations up to date. - Infectious Disease History:: Denies. - Social history:: Smoking status: Patient denies any tobacco usage or history of. Screenin:16 [facility] ED Fall Risk Assessment (Adult) History of falling in the last 3 months, ld1 including since admission No falls in past 3 months (0 pts) Confusion or Disorientation No (0 pts) Intoxicated or Sedated No (0 pts) Impaired Gait No (0 pts) Mobility Assist Device Used No (0 pt) Altered Elimination No (0 pt) Score/Fall Risk Level 0 - 2 = Low Risk. Abuse screen: Denies threats or abuse. Denies injuries from another. Nutritional screening: No deficits noted. Tuberculosis screening: No symptoms or risk factors identified. Assessment: 10:50 General: Appears in no apparent distress. uncomfortable, Behavior is calm, cooperative. rs5 Pain: Complains of pain in abdomen Pain currently is 7 out of 10 on a pain scale. Quality of pain is described as aching, Is intermittent. Neuro: Level of Consciousness is awake, alert, obeys commands, Oriented to person, place, time, situation. Cardiovascular: Patient's skin is warm and dry. Respiratory: Airway is patent Respiratory effort is even, unlabored, Respiratory pattern is regular, symmetrical. GI: Abdomen is round non-distended, Colostomy site is clean and dry. Ostomy appliance is intact. 10:50 GI: Reports diarrhea. : No signs and/or symptoms were reported regarding the rs5 genitourinary system. EENT:. Derm: Skin is intact, Skin is pink, warm \\T\\ dry. Musculoskeletal: Range of motion: intact in all extremities. 12:05 Reassessment: Patient and/or family updated on plan of care and expected duration. Pain rs5 level reassessed. Patient is alert, oriented x 3, equal unlabored respirations, skin warm/dry/pink. Patient denies pain at this time. Patient states feeling better. 12:25 Reassessment: to bedside for med adm, pt states "I don't want morphine or zofran, could rs5 you ask the doctor if I could just have some tordol?" provider notified . 12:35 Reassessment: No changes from previously documented assessment. rs5 12:40 Reassessment: Provider notified, verbal orders by MD to adm 15 mg tordol, to bedside rs5 for med ad \\[id number]\\[id number]. Vital Signs: 10:48 BP 154 / 76; Pulse 77; Resp 17; Temp 97.8(O); Pulse Ox 98% ; rs5 12:16 BP 130 / 66; Pulse 63; Resp 18; Pulse Ox 98% on R/A; ld1 ED Course: 10:47 Patient arrived in ED. rs5 10:48 Mary Weaver MD is Attending Physician. sp3 10:50 Triage completed. rs5 10:53 Arron Rangel, [place] is Primary Nurse. rs5 11:08 CT Abd/Pelvis - IV Contrast Only In Process Unspecified. EDMS 12:15 IV discontinued, intact, bleeding controlled, No redness/swelling at site. Pressure rs5 dressing applied. 12:17 Arm band placed on right wrist. ld1 12:17 No provider procedures requiring assistance completed. ld1 12:18 Patient has correct armband on for positive identification. Placed in gown. Bed in low ld1 position. Call light in reach. Side rails up X2. Pulse ox on. NIBP on. Door closed. Noise minimized. Warm blanket given. Administered Medications: 12:28 Not Given (Patient Refused): morphineor iv 4 mg IVP once over 4 mins ld1 12:28 Not Given (Patient Refused): ondansetron 4 mg IVP once; over 2 minutes ld1 Medication: 12:16 VIS not applicable for this client. ld1 Outcome: 12:28 Discharge ordered by . sp3 12:50 Discharged to home ambulatory, with family, rs5 12:50 Condition: stable 12:50 Discharge instructions given to patient, family, Instructed on discharge instructions, follow up and referral plans. medication usage, Demonstrated understanding of instructions, follow-up care, medications, Prescriptions given X 2, 12:55 Patient left the ED. rs5 Signatures: Dispatcher [employer] EDMS Marcie Aguilar RN RN ld1 Mary Weaver MD MD sp3 Arron Rangel, [place] RN rs5 Corrections: (The following items were deleted from the chart) 15:15 12:16 Reassessment: See triage assessment ld1 rs5
== END 2024-03-07 12:55 | disposition home or self-care (01) ==
LOC: ER 10:14
DX: R10.84 Generalized abdominal pain (principal); Z93.3 Colostomy status; Z90.49 Acquired absence of other specified parts of digestive tract
CPT/HCPCS: 85025; 80048; 36415; 83735; 85610; 80076; 84484; 83690; 83880; 74177; Q9967; 93005; J2405

== ENCOUNTER 2025-01-03 18:47 | Inpatient (IN) | payer OTHER ==
--- NOTE | 2025-01-03 19:55 | RAD REPORT ---
EXAM: CT brain without contrast HISTORY: Weakness COMPARISON: 03/20/2024 MRI brain TECHNIQUE: Multiple contiguous axial images were obtained and a CT of the brain without contrast. Sag ittal and coronal reformats were performed. One or more of the following dose reduction techniques were used: Automated exposure control, adjust ment of the mA and/or kV according to patient size, and/or iterative reconstruction. FINDINGS: No evidence of hydrocephalus, intracranial hemorrhage, or extra-axial fluid collection. Mild brain atrophy with mild periventricular and deep white matter chronic microvascular ischemic ch anges present, slightly asymmetric towards the left. No evidence of midline shift or areas of brain edema. The calvarium is intact. The visualized paranasal sinuses and mastoid air cells are essentially clear . IMPRESSION: No evidence of acute intracranial abnormality.
--- NOTE | 2025-01-03 20:08 | RAD REPORT ---
EXAMINATION: CTA HEAD CLINICAL INDICATION: headache, right side facial droop TECHNIQUE: Axial CT images were obtained through the head after intravenous contrast utilizing angiog raphic protocol with 3D post-processing (maximum intensity projection images, volume rendered images and/or shaded surface rendered images). One or more of the following dose reduction technique s were used: Automated exposure control, adjustment of the mA and/or kV according to patient size, and/or iterative reconstruction. Unless otherwise specified, incidental findings do not require dedic ated imaging follow-up. COMPARISON: No prior exam. FINDINGS: ICA: The petrous, cavernous, and supraclinoid segments of the bilateral internal carotid arteries are normal. The ophthalmic artery origins are visualized and normal. The posterior communicating arteries are patent. HUY: Anterior cerebral arteries are normal bilaterally. The anterior communicating artery is patent. MCA: Middle cerebral arteries are normal bilaterally. CLINICAL NURSE LEADER: Posterior cerebral arteries are normal bilaterally. Vertebrobasilar: The vertebral arteries are patent. The basilar artery is normal in appearance. 3D images confirm these findings. IMPRESSION: No significant flow abnormality is identified.
[2025-01-03 20:09] LABS: Absolute Eosinophils 0.2 K/uL (0-0.5); Absolute Lymphocytes (CBC) 1.9 K/uL (0.7-4.9); Absolute Monocytes 0.7 K/uL (0.1-1.3); Absolute Neutrophil 5.4 K/uL (1.8-8.0); Basophils % 0.4 % (0-1.3); Eosinophils % 2.6 % (0-4.4); Hematocrit 37.6 % (36.0-45.0); Hemoglobin 12.9 g/dL (12.0-15.0); Lymphocytes % 22.5 % (15.3-44.8); MCH 30.9 pg (27.0-35.0); MCHC 34.4 g/dL (32.0-36.0); MCV 89.9 fL (80-100); MPV 10.2 fL (7.6-11.3); Neutrophils % 65.5 % (41.7-73.7); Nucleated Red Blood Cells % 0.2 % (0-0); Platelets 225 thou/uL (152-406); RBC Red Blood Cell Count 4.18 M/uL (3.86-4.86); Red Cell Distribution Width 14.5 % (12.1-15.2)
--- NOTE | 2025-01-03 20:11 | RAD REPORT ---
EXAMINATION: CTA NECK CLINICAL INDICATION: right side facial droop;Headache TECHNIQUE: Axial CT images were obtained from the aortic arch to the skull base after intravenous con trast utilizing angiographic protocol with 3D post-processing (maximum intensity projection images, volume rendered images and/or shaded surface rendered images). One or more of the following dose redu ction techniques were used: Automated exposure control, adjustment of the mA and/or kV according to patient size, and/or iterative reconstruction. Unless otherwise specified, incidental findings do not require dedicated imaging follow-up. COMPARISON: No prior exam. FINDINGS: AORTA: The imaged aortic arch is normal. CCA: The common carotid arteries are patent and normal in caliber. ICA/ECA: There is a large focal hard plaque noted left carotid bulb resulting in narrowing proximal l eft 50-70 %. Minimal are plaque right carotid bulb. VERTEBRAL: The cervical vertebral arteries are patent. The vertebral arteries are codominant. SOFT TISSUE: No significant neck soft tissue abnormalities. The visualized lung apices are clear. 3D images confirm these findings. IMPRESSION: Focal hard plaque left carotid bulb resulting in moderate stenosis. NASCET criteria used. Mild 0-49% stenosis Moderate 50-69% stenosis Severe 70-99% stenosis
[2025-01-03 20:28] LABS: Anion Gap 6.7 mEq/L (5.0-15.0); C-Reactive Protein 8.19 mg/L (<3.00); Potassium 3.7 mEq/L (3.5-5.1); Troponin High Sensitivity 24.3 pg/mL (<58.9)
[2025-01-03 20:34] LABS: PT Prothrombin Time 11.2 SECONDS (10-13.0); PTT, Activated Partial Thromb 33.7 SECONDS (27.2-37.4); Protime INR 0.98
--- NOTE | 2025-01-03 21:16 | RAD REPORT ---
EXAMINATION: ONE VIEW CHEST XR CLINICAL INDICATION: headache TECHNIQUE: Frontal chest projection is submitted. Examination is limited by patient positioning and t echnique. COMPARISON: 10/09/2020 FINDINGS: Mild interstitial pulmonary edema. The heart is mildly moderately enlarged. No displaced fractures id entified. IMPRESSION: Mild CHF.
[2025-01-03 22:53] LABS: Sqamous Epithelial <5 /HPF (None Seen); Urine Bacteria None Seen /HPF (<20); Urine Bilirubin NEGATIVE (Negative); Urine Blood Negative (Negative); Urine Clarity Clear (Clear); Urine Color Colorless (Yellow); Urine Glucose NEGATIVE (Negative); Urine Ketones NEGATIVE (Negative); Urine Micro Reflex YN NO BILL MICROSCOPIC; Urine Nitrite NEGATIVE (Negative); Urine Protein NEGATIVE (Negative); Urine RBC <5 /HPF (None Seen); Urine Urobilinogen Normal (Normal); Urine WBC <5 /HPF (<5); Urine pH 5.5 (5.0-7.0)
[2025-01-03 22:55] LABS: Specific Gravity > 1.030 (1.005-1.030)
[2025-01-03] MEDS ORDERED: ASPIRIN 81 MG CHEWABLE TABLET ONE (23:04)
[2025-01-03] MEDS ORDERED: dexAMETHasone 10 MG/ML VIAL ONE (23:04)
[2025-01-03] MEDS ORDERED: METOCLOPRAMIDE 10 MG/2mL INJ ONE (23:04)
[2025-01-03] MEDS ORDERED: FOLIC ACID 5 MG/ML VIAL ONE (23:04)
[2025-01-03] MEDS ORDERED: DIPHENHYDRAMINE 50 MG/ML VIAL ONE (23:04)
[2025-01-03] MEDS ORDERED: NA CHLORIDE 0.9% 250 ML ONE (23:05)
--- NOTE | 2025-01-03 23:12 | EDPHYS ---
Physician Documentation [facility] Name: Toña Serrano Age: 79 yrs Sex: Female : 1945 Arrival Date: 01/03/2025 Time: 18:47 Bed 16 Private MD: ED Physician Haja Leos HPI: 01/03 18:55 This 79 yrs old Female presents to ER via Ambulatory with complaints of Facial cp Droop, Headache. 18:55 The patient complains of pain to the right temporal area and right forehead. The cp patient describes the headache as aching, constant. Onset: The symptoms/episode began/occurred 1 month(s) ago. 18:55 Patient reports she has seen neurologist and PCP concerning headache and was prescribed cp medication but unable to take because it contained caffeine. Daughter reports noticing right side of patient's face drooping today but reports last time she saw patient was last Tuesday. Patient unsure when right side face started drooping. Historical: - Allergies: 18:55 caffeine; iw 18:55 codeine sulfate; iw - PMHx: 18:55 Arthritis; Colon Polyps; Hypertension; Myocardial infarction; skin cancer; iw - PSHx: 01/04 09:02 Appendectomy; Cholecystectomy; Colostomy; Left kidney removal (an); db - Immunization history:: Adult Immunizations unknown. - Infectious Disease History:: Denies. - Social history:: Smoking status: Patient denies any tobacco usage or history of. ROS: 01/03 19:00 Constitutional: Negative for body aches, chills, fever, poor PO intake, cp 19:00 ENT: Negative for drainage from ear(s), ear pain, sore throat, difficulty swallowing, cp difficulty handling secretions, 19:00 Cardiovascular: Negative for chest pain, edema, palpitations, 19:00 Respiratory: Negative for cough, shortness of breath, wheezing, 19:00 Abdomen/GI: Negative for abdominal pain, vomiting, diarrhea, constipation, 19:00 Back: Negative for pain at rest, pain with movement, 19:00 Neuro: Positive for headache, Negative for altered mental status, dizziness, syncope, near syncope, 19:00 All other systems are negative, Exam: 19:05 Constitutional: The patient appears in no acute distress, alert, awake, cp non-diaphoretic, non-toxic, well developed, well nourished, uncomfortable, 19:05 Head/face: right side facial droop. cp 19:05 Eyes: Periorbital structures: appear normal, Pupils: equal, round, and reactive to light and accomodation, Extraocular movements: intact throughout, Conjunctiva: normal, no exudate, no injection, Sclera: no appreciated abnormality, Lids and lashes: right upper lid droop. 19:05 ENT: External ear(s): are unremarkable, Nose: is normal, Mouth: Lips: moist, Oral mucosa: moist, Posterior pharynx: Airway: no evidence of obstruction, patent, 19:05 Neck: ROM/movement: Meningeal signs: are not present, nuchal rigidity, is not appreciated, 19:05 Chest/axilla: Inspection: normal, 19:05 Cardiovascular: Rate: normal, Rhythm: regular, Edema: is not appreciated, JVD: is not appreciated, 19:05 Respiratory: the patient does not display signs of respiratory distress, Respirations: normal, no use of accessory muscles, no retractions, labored breathing, is not present, Breath sounds: are clear throughout, no decreased breath sounds, no stridor, no wheezing, 19:05 Abdomen/GI: Inspection: abdomen appears normal, Palpation: abdomen is soft and non-tender, in all quadrants, 19:05 Neuro: Cerebellar function: Romberg testing is negative, normal finger to nose testing, Motor: moves all fours, Sensation: no obvious gross deficits, Gait: is steady, 22:45 ECG was reviewed by the Attending Physician. cp Vital Signs: 18:54 BP 150 / 81; Pulse 72; Resp 19; Temp 98.2; Pulse Ox 96% on R/A; iw 22:30 BP 142 / 66; Pulse 78; Resp 17; Pulse Ox 97% ; jj7 23:45 BP 139 / 68; Pulse 69; Resp 16; Pulse Ox 99% ; jj7 18 00:40 BP 135 / 67; Pulse 68; Resp 18; Pulse Ox 97% ; jj7 01:42 BP 137 / 70; Pulse 72; Resp 16; Pulse Ox 97% ; jj7 NIH Stroke Scale Scores: 01/03 19:05 NIHSS Score: 2 cp MDM: 18:54 Medical Screening Exam initiated cp 23:15 Data reviewed: vital signs, nurses notes, lab test result(s), EKG, radiologic studies, cp CT scan, plain films, I have discussed the patient's presentation/case with the attending Emergency Department Physician; and as a result, I will admit patient. 23:15 Differential diagnosis: cerebral vascular accident, meningoencephalitis, migraine, cp neoplasm, subarachnoid bleed, subdural hematoma, tension headache. Management of patient was discussed with the following: Hospitalist: DR Riggs will admit after discussion. I considered the following discharge prescriptions or medication management in the emergency department Medications were administered in the Emergency Department. See MAR. Care significantly affected by the following chronic conditions: Hypertension. Counseling: I had a detailed discussion with the patient and/or guardian regarding the historical points, exam findings, and any diagnostic results supporting the discharge/admit diagnosis, lab results, radiology results. 01/03 19:04 Order name: Basic Metabolic Panel; Complete Time: 22:29 cp 01/03 22:32 Interpretation: Normal except: CL 108; GLUC 112; BUN 22; GFR 75. cp 01/03 19:04 Order name: CBC with Diff; Complete Time: 20:17 cp 01/03 20:17 Interpretation: Reviewed. cp 01/03 19:04 Order name: High Sensitivity Troponin; Complete Time: 22:29 cp 01/03 19:04 Order name: Magnesium; Complete Time: 22:29 cp 01/03 19:04 Order name: Protime (+inr); Complete Time: 22:29 cp 01/03 19:04 Order name: Ptt, Activated; Complete Time: 22:29 cp 01/03 19:04 Order name: Urinalysis W/Microscopic; Complete Time: 22:56 cp 01/03 19:04 Order name: CRP; Complete Time: 22:29 cp 01/03 23:38 Order name: CBC with Automated Diff EDMS 01/03 23:38 Order name: CBC with Automated Diff EDMS 01/03 23:38 Order name: Comprehensive Metabolic Panel EDMS 01/03 23:38 Order name: Comprehensive Metabolic Panel EDMS 01/03 23:38 Order name: Lipid Profile EDMS 01/03 23:38 Order name: Lipid Profile EDMS 01/04 11:02 Order name: CREATININE WHOLE BLOOD EDMS 01/03 19:04 Order name: CT Head Angio; Complete Time: 20:17 cp 01/03 20:17 Interpretation: Report reviewed. cp 01/03 19:04 Order name: CT Neck Angio; Complete Time: 20:17 cp 01/03 20:18 Interpretation: Report reviewed. cp 01/03 19:04 Order name: Stroke CXR 1 View; Complete Time: 22:29 cp 01/03 19:28 Order name: Head Brain Wo Cont; Complete Time: 20:17 EDKY 01/03 20:18 Interpretation: Report reviewed. cp 01/03 23:38 Order name: Echo with Doppler EDKY 01/03 23:38 Order name: Stroke Protocol EDKY 01/04 08:34 Order name: MRI EDKY 01/03 23:38 Order name: CONS Physician Consult EDKY 01/03 23:38 Order name: IRF Screen EDKY 01/03 23:38 Order name: Physical Therapy Consult EDKY 01/03 23:38 Order name: Speech Therapy Consult EDKY 01/03 23:38 Order name: EKG Electrocardiogram EDKY 01/03 19:04 Order name: Accucheck; Complete Time: 23:18 cp 01/03 19:04 Order name: EKG - Nurse/Tech; Complete Time: 22:44 cp 01/03 19:04 Order name: IV Saline Lock; Complete Time: 22:44 cp 01/03 19:04 Order name: Labs collected and sent; Complete Time: 22:44 cp 01/03 19:04 Order name: NPO; Complete Time: 22:44 cp 01/03 19:04 Order name: O2 Per Protocol; Complete Time: 22:44 cp 01/03 19:04 Order name: O2 Sat Monitoring; Complete Time: 22:44 cp 01/03 19:04 Order name: Stroke Swallow Screen; Complete Time: 23:14 cp EC:45 Rate is 67 beats/min. Rhythm is regular. OK interval is normal. QRS interval is normal. cp QT interval is normal. T waves are Inverted in lead aVR. Interpreted by me. Reviewed by me. Administered Medications: 23:12 Drug: NS 0.9% IV 250 ml IV at bolus once; to be given as a bolus over 30 minutes Route: jj7 IV; Rate: bolus; Site: right antecubital; 23:59 Follow up: IV Status: Completed infusion jj7 23:13 Drug: foLIC Acid IVPB 1 mg IVPB once Route: IVPB; Site: right antecubital; jj7 23:58 Follow up: IV Status: Completed infusion jj7 23:13 Drug: Aspirin PO Chewable Tablet 162 mg PO once Route: PO; jj7 23:58 Follow up: Response: No adverse reaction; Marked relief of symptoms jj7 23:13 Drug: metoCLOPramide IVP 10 mg IVP once; over 1 to 2 minutes Route: IVP; Site: right [facility] antecubital; 23:58 Follow up: Response: Marked relief of symptoms jj7 23:13 Drug: diphenhydrAMINE IVP 25 mg IVP once Route: IVP; Site: right antecubital; jj7 23:58 Follow up: Response: Marked relief of symptoms jj7 23:13 Drug: Dexamethasone IVP 10 mg IVP once; (not to exceed 40 mg) Route: IVP; Site: right [facility] antecubital; 23:58 Follow up: Response: Marked relief of symptoms jj7 Disposition: 01/05 02:47 Chart complete. cp 08:08 Co-signature as Attending Physician, Haja Leos MD I agree with the assessment and claudia plan of care. Disposition Summary: 01/03/25 23:11 Hospitalization Ordered Notes: Hospitalization Status: Observation cp Provider: Toni Riggs cp Condition: Stable cp Problem: new cp Symptoms: are unchanged cp Bed/Room Type: Standard cp Location: [facility] ER HOLD(01/04/25 01:11) rv1 Room Assignment: ERHOLD-(01/04/25 01:11) rv1 Diagnosis - Headache cp - Facial weakness - right cp Forms: - Medication Reconciliation Form cp - SBAR form cp - Leadership Thank You Letter cp NIH Stroke Scale - NIH Stroke Score Date: 01/03/2025 Time: 19:05 Total Score = 2 10. Dysarthria (speech clarity - read or repeat words) - 0(Normal) 11. Extinction and Inattention (visual/tactile/auditory/spatial/personal) - 0(No abnormality) 1a. Level of Consciousness (LOC) - 0(Alert) 1b. Level of Consciousness (LOC) (Month \T\ Age) - 0(Both) 1c. LOC Commands (Open \T\ Closes Eyes/Freezer Tunnel Operator) - 0(Both) 2. Best Gaze (Lateral Gaze Paresis) - 0(Normal) 3. Visual Field Loss - 0(No visual loss) 4. Facial Palsy - 1(Minor Paralysis) 5a. Left Arm: Motor (10-second hold) - 0(No drift) 5b. Right Arm: Motor (10-second hold) - 0(No drift) 6a. Left Leg: Motor (5-second hold - always test supine) - 0(No drift) 6b. Right Leg: Motor (5-second hold - always test supine) - 0(No drift) 7. Limb Ataxia (finger/nose \T\ heel/lombardi - test with eyes open) - 0(Absent) 8. Sensory Loss (pinprick arms/legs/face) - 1(Mild to moderate loss) 9. Best Language: Aphasia (description/naming/reading) - 0(No aphasia) Initials: cp Signatures: Dispatcher [employer] EDMS Haja Leos MD MD cha Williams, Irene RN Haja Vázquez PA PA cp Johnson, Juwairiyah, RN RN jj7 Elena Gorman RN CAROLINA db Lynn Butts rv1 Corrections: (The following items were deleted from the chart) 01/03 19:05 19:04 BASIC METABOLIC PANEL+C.LAB.BRZ ordered. EDMS EDMS 19:05 19:04 CBC+H.LAB.BRZ ordered. EDMS EDMS 19:05 19:04 Troponin High Sensitivity+C.LAB.BRZ ordered. EDMS EDMS 19: 19:04 MAGNESIUM+C.LAB.BRZ ordered. EDMS EDMS 19:05 19:04 PROTIME (+INR)+COAG.LAB.BRZ ordered. EDMS EDMS 19:05 19:04 PTT, ACTIVATED+COAG.LAB.BRZ ordered. EDMS EDMS 19:05 19:04 Urinalysis W/Microscopic+U.LAB.BRZ ordered. EDMS EDMS 19:05 19:04 C-REACTIVE PROTEIN+C.LAB.BRZ ordered. EDMS EDMS 19:05 19:05 Head Angio+CT.RAD.BRZ ordered. EDMS EDMS 19:05 19:05 Neck Angio+CT.RAD.BRZ ordered. EDMS EDMS 19:05 19:05 CT-STROKE BRAIN W/O CONTRAST+CT.RAD.BRZ ordered. EDMS EDMS 19:05 19:05 Chest Single View+RAD.RAD.BRZ ordered. EDMS EDMS 01/04 01:11 01/03 23:11 Telemetry/MedSurg (observation) cp rv1 01/04 01:11 01/03 23:11 cp rv1 01/04 05:41 01/03 22:45 ECG was reviewed by the Attending Physician. delmy 01/05 02:39 01/04 05:41 Rate is 67 beats/min. Rhythm is regular. OK interval is normal. QRS cp interval is normal. QT interval is normal. T waves are Inverted in lead aVR. Interpreted by me. Reviewed by me. cp
--- NOTE | 2025-01-03 23:12 | ER ---
Nurse's Notes [facility] Name: Toña Serrano Age: 79 yrs Sex: Female : 1945 Arrival Date: 01/03/2025 Time: 18:47 Bed 16 Private MD: Diagnosis: Headache;Facial weakness-right Presentation: 01/03 18:54 Chief complaint: Patient states: headache X 1 month, has been seen by her doctor, iw tender to touch on right side , I couldn't take the pills Dr. Rubio prescribed because of the caffeine , she has a right sided facial droop , last was normal a week ago. Initial Sepsis Screen: Does the patient meet any 2 criteria? No. Patient's initial sepsis screen is negative. Does the patient have a suspected source of infection? No. Patient's initial sepsis screen is negative. Risk Assessment: Do you want to hurt yourself or someone else? Patient reports no desire to harm self or others. 18:54 Method Of Arrival: Ambulatory iw 18:54 Acuity: MILO 3 iw 18:55 Coronavirus screen: At this time, the client does not indicate any symptoms associated iw with coronavirus-19. Ebola Screen: No symptoms or risks identified at this time. 18:56 Onset of symptoms was December 27, 2024. iw Stroke Activation: Symptom onset > 6 hours Physician: ED Attending; Name: ; Notified At: ; Arrived At: Physician: Mid-Level Provider; Name: ; Notified At: ; Arrived At: Physician: [not used]; Name: ; Notified At: ; Arrived At: Physician: [not used]; Name: ; Notified At: ; Arrived At: Physician: [not used]; Name: ; Notified At: ; Arrived At: Historical: - Allergies: 18:55 caffeine; iw 18:55 codeine sulfate; iw - PMHx: 18:55 Arthritis; Colon Polyps; Hypertension; Myocardial infarction; skin cancer; iw - PSHx: 01/04 09:02 Appendectomy; Cholecystectomy; Colostomy; Left kidney removal (an); db - Immunization history:: Adult Immunizations unknown. - Infectious Disease History:: Denies. - Social history:: Smoking status: Patient denies any tobacco usage or history of. Screenin/17 22:00 Abuse screen: Denies threats or abuse. Nutritional screening: No deficits noted. jj7 Tuberculosis screening: No symptoms or risk factors identified. 01/04 07:15 [facility] ED Fall Risk Assessment (Adult) History of falling in the last 3 months, db including since admission Yes- single mechanical fall (1 pt) Confusion or Disorientation No (0 pts) Intoxicated or Sedated No (0 pts) Impaired Gait No (0 pts) Mobility Assist Device Used No (0 pt) Altered Elimination No (0 pt) Score/Fall Risk Level 0 - 2 = Low Risk Oriented to surroundings, Maintained a safe environment. Assessment: 01/03 22:30 Fatimah Swallow Protocol Brief Cognitive Screen What is your name? Normal, Where are you jj7 right now? Normal, What year is it? Normal. Oral Mechanism Examination Facial Symmetry: Normal, Motion: Normal, Lip Closure: Normal, Oral Mechanism Result: Normal. 3 oz Water Swallow Challenge: Pt able to drink all water without stopping, coughing, choking or throat clearing: Yes Result: PASS MD Notified: Haja MOORE. Reassessment: ASSUMED CARE OF PT. PT IN BED. VS STABLE. FAMILY AT BEDSIDE. CALL RODRIGUEZ AT REACH. General: Appears in no apparent distress. uncomfortable, Behavior is calm, cooperative, appropriate for age. Pain: Complains of pain in top of head, forehead, right eye, right muslim and right temporal area. Neuro: Reports headache in right. 01/04 07:15 VAN Scoring: Arm Drift: Patients demonstrates NO arm weakness. Patient is VAN Negative. db [place] Swallow Protocol. TNKase (Tenecteplase) Screening: Not Applicable. Reassessment: SEE Re-Compose FOR CONTINUED DOCUMENTATION. Vital Signs: 01/03 18:54 BP 150 / 81; Pulse 72; Resp 19; Temp 98.2; Pulse Ox 96% on R/A; iw 22:30 BP 142 / 66; Pulse 78; Resp 17; Pulse Ox 97% ; jj7 23:45 BP 139 / 68; Pulse 69; Resp 16; Pulse Ox 99% ; jj7 01/04 00:40 BP 135 / 67; Pulse 68; Resp 18; Pulse Ox 97% ; jj7 01:42 BP 137 / 70; Pulse 72; Resp 16; Pulse Ox 97% ; jj7 NIH Stroke Scale Scores: 01/03 19:05 NIHSS Score: 2 cp ED Course: 18:49 Patient arrived in ED. im 18:54 [facility] cp 18:54 Gladis Dominguez MD is Attending Physician. cp 18:55 Triage completed. iw 18:59 Arm band placed on. iw 19:50 Head Brain Wo Cont In Process Unspecified. EDMS 20:03 CT Head Angio In Process Unspecified. EDMS 20:03 CT Neck Angio In Process Unspecified. EDMS 20:28 Inserted saline lock: 22 gauge in right forearm, using aseptic technique. Blood lg3 collected. Flushed with 10 mL NS. 20:37 Stroke CXR 1 View In Process Unspecified. EDMS 22:28 Haja Leos MD is Attending Physician. cp 22:43 Jordyn Mckenzie RN is Primary Nurse. jj7 22:46 Urinalysis W/Microscopic Sent. jj7 23:10 Toni Riggs MD is Hospitalizing Provider. cp 01/04 07:15 Patient has correct armband on for positive identification. Bed in low position. Call db light in reach. Side rails up X2. Provided Education on: ADMISSION. Client placed on continuous cardiac and pulse oximetry monitoring. NIBP monitoring applied. potline monitor on. Pulse ox on. NIBP on. Warm blanket given. Pillow given. 07:15 No provider procedures requiring assistance completed. Patient admitted, IV remains in db place. Administered Medications: 01/03 23:12 Drug: NS 0.9% IV 250 ml IV at bolus once; to be given as a bolus over 30 minutes Route: jj7 IV; Rate: bolus; Site: right antecubital; 23:59 Follow up: IV Status: Completed infusion jj7 23:13 Drug: foLIC Acid IVPB 1 mg IVPB once Route: IVPB; Site: right antecubital; jj7 23:58 Follow up: IV Status: Completed infusion jj7 23:13 Drug: Aspirin PO Chewable Tablet 162 mg PO once Route: PO; jj7 23:58 Follow up: Response: No adverse reaction; Marked relief of symptoms jj7 23:13 Drug: metoCLOPramide IVP 10 mg IVP once; over 1 to 2 minutes Route: IVP; Site: right [facility] antecubital; 23:58 Follow up: Response: Marked relief of symptoms jj7 23:13 Drug: diphenhydrAMINE IVP 25 mg IVP once Route: IVP; Site: right antecubital; jj7 23:58 Follow up: Response: Marked relief of symptoms jj7 23:13 Drug: Dexamethasone IVP 10 mg IVP once; (not to exceed 40 mg) Route: IVP; Site: right jj7 antecubital; 23:58 Follow up: Response: Marked relief of symptoms jj7 Medication: 01/04 07:15 VIS not applicable for this client. db Outcome: 01/03 23:11 Decision to Hospitalize by Provider. cp 01/04 07:15 Admitted to ER Hold. Please see [facility] for further documentation. db Condition: stable Instructed on the need for admit, 12:47 Patient left the ED. db NIH Stroke Scale - NIH Stroke Score Date: 01/03/2025 Time: 19:05 Total Score = 2 10. Dysarthria (speech clarity - read or repeat words) - 0(Normal) 11. Extinction and Inattention (visual/tactile/auditory/spatial/personal) - 0(No abnormality) 1a. Level of Consciousness (LOC) - 0(Alert) 1b. Level of Consciousness (LOC) (Month \T\ Age) - 0(Both) 1c. LOC Commands (Open \T\ Closes Eyes/Rehabilitation Engineer) - 0(Both) 2. Best Gaze (Lateral Gaze Paresis) - 0(Normal) 3. Visual Field Loss - 0(No visual loss) 4. Facial Palsy - 1(Minor Paralysis) 5a. Left Arm: Motor (10-second hold) - 0(No drift) 5b. Right Arm: Motor (10-second hold) - 0(No drift) 6a. Left Leg: Motor (5-second hold - always test supine) - 0(No drift) 6b. Right Leg: Motor (5-second hold - always test supine) - 0(No drift) 7. Limb Ataxia (finger/nose \T\ heel/lombardi - test with eyes open) - 0(Absent) 8. Sensory Loss (pinprick arms/legs/face) - 1(Mild to moderate loss) 9. Best Language: Aphasia (description/naming/reading) - 0(No aphasia) Initials: cp Signatures: Dispatcher [employer] EDJaneth Thao RN RN iw Page, Corey, PA PA cp Able, Lacie RN RN lg3 Jordyn Mckenzie RN RN jj7 Elena Gorman RN RN db Connie Reed Corrections: (The following items were deleted from the chart) 01/03 18:56 18:54 Chief complaint: Patient states: headache X 1 month, has been seen by her doctor, tender to touch on right side iw 18:59 18:54 Chief complaint: Patient states: headache X 1 month, has been seen by her doctor, tender to touch on right side , I couldn't take the pills Dr. Rubio prescribed because of the caffeine iw
[2025-01-03] MEDS ORDERED: ONDANSETRON 4 MG/2 ML VIAL IV PRN (23:32)
[2025-01-03] MEDS ORDERED: ACETAMINOPHEN 500 MG TAB PO PRN (23:32)
--- NOTE | 2025-01-03 23:32 | P.HP ---
Certification for Inpatient Patient admitted to: Observation With expected LOS: <2 Midnights Practitioner: I am a practitioner with admitting privileges, knowledge of patient current condition, hospital course, and medical plan of care. Services: Services provided to patient in accordance with Admission requirements found in Title 42 Section 412.3 of the Code of Federal Regulations Patient History Date of Service: 01/04/25 Reason for admission: ? Stroke History of Present Illness: 79-year-old female with past medical history of hypertension, hyperlipidemia, hypothyroidism who was brought to ER with headache which has been going on for the last 1 month and has been seen by the PCP. Family noticed that she had a right-sided facial droop for the last few days and was brought to ER for possible CVA. Still continues to have headache on the right side. No fever or chills. Denies any chest pain or shortness of breath. Denies any palpitation. Patient was assessed in the ER and is admitted for further management Allergies caffeine Allergy (Verified 01/05/16 09:47) palpitations/FL codeine Allergy (Verified 01/05/16 09:47) hallucinations codeine sulfate Allergy (Uncoded 03/04/18 11:23) Unknown Home medications list reviewed: Yes Home Medications: Aspirin [Aspirin EC] 81 mg PO DAILY 03/27/15 Bisoprolol/Hydrochlorothiazide [Bisoprolol-Hctz 5-6.25 mg Tab] 1 each PO DAILY WITH BREAKFAST 03/27/15 Docosahexanoic AC/Epa [Fish Oil 1,000 MG CAP] 1,000 mg PO DAILY 03/27/15 Levothyroxine [Synthroid] 50 mcg PO [id number] 03/27/15 Niacin [Niaspan] 500 mg PO DAILY 03/27/15 Potassium Chloride [Klor-Con] 20 meq PO DAILY 03/27/15 Sulfamethoxazole/Trimethoprim [Bactrim Ds Tablet] 1 each PO BID #10 tablet 01/05/16 Tramadol HCl/Acetaminophen [Ultracet Tablet] 1 each PO Q6H #15 tablet 01/05/16 - Past Medical/Surgical History Past Medical History: Reviewed- Non-Contributory -: HTN -: Hypothyroidism Past Surgical History: Reviewed- Non-Contributory - Family History Family History: Reviewed- Non-Contributory - Social History Smoking Status: Never smoker Review of Systems 10-point ROS is otherwise unremarkable Physical Examination - Vital Signs Temperature: 97.8 F Blood Pressure: 148/68 Pulse: 76 Respirations: 18 Pulse Ox (%): 94 - Physical Exam General: Alert, In no apparent distress, Oriented x3 HEENT: Atraumatic, Normocephalic Neck: Supple Respiratory: Clear to auscultation bilaterally, Normal air movement Cardiovascular: Regular rate/rhythm, Normal S1 S2 Capillary refill: <2 Seconds Gastrointestinal: Soft and benign, W/out hepatosplenomegaly Musculoskeletal: No clubbing, No swelling Integumentary: No rashes Neurological: Other (Alert awake nonfocal) Lymphatics: No axilla or inguinal lymphadenopathy - Studies Laboratory Data (last 24 hrs) 01/03/25 01/03/25 01/03/25 19:50 19:50 19:50 WBC 8.30 Hgb 12.9 Hct 37.6 Plt Count 225 PT 11.2 INR 0.98 APTT 33.7 Sodium 141 Potassium 3.7 BUN 22 H Creatinine 0.81 Glucose 112 H Magnesium 2.0 Assessment and Plan - Plan CVA/TIA No focal weakness Numbness of right side of face Started on aspirin and statin CT findings noted MRI brain ordered Monitor neuro vital signs Monitor under telemetry Neurology consulted Headache right sided Will get the ESR and CRP Pain control Monitor closely Hypertension Antihypertensives titrated Continue home medications and titrate as needed Hyperlipidemia Continue statin CKD stage II Monitor renal parameters Electrolytes monitor and replace accordingly Diabetes Insulin sliding scale Accu-Chek before every meal and at bedtime Anemia of chronic disease Monitor H&H closely No overt bleeding at this time Patient had GI bleeding in the past requiring transfusions GI/DVT prophylaxis Advanced directive full code Discharge Plan: Home Plan to discharge in: 48 Hours - Advance Directives Does patient have a Living Will: No Does patient have a Durable POA for Healthcare: No - Code Status/Comfort Care Code Status: Full Code Time Spent Managing Pts Care (In Minutes): 48
[2025-01-04 04:14] VITALS: BMI 35.4
[2025-01-04] MEDS ORDERED: NA CHLORIDE 0.9% 1,000 ML ONE (04:19)
[2025-01-04] MEDS: LEVOTHYROXINE SOD 0.05 MG TABLET PO SCH (06:48)
[2025-01-04] MEDS: NA CHLORIDE 0.9% 1,000 ML IV SCH (07:00)
[2025-01-04] MEDS ORDERED: BISOPROLOL/HCTZ 5/6.25MG TAB PO SCH (08:00)
[2025-01-04 08:09] LABS: Absolute Lymphocytes (CBC) 1.1 K/uL (0.7-4.9); Absolute Monocytes 0.1 K/uL (0.1-1.3); Absolute Neutrophil 6.4 K/uL (1.8-8.0); Basophils % 0.4 % (0-1.3); Eosinophils % 0.1 % (0-4.4); Hemoglobin 12.9 g/dL (12.0-15.0); MCH 30.5 pg (27.0-35.0); MCV 89.7 fL (80-100); MPV 10.3 fL (7.6-11.3); Monocytes % 0.7 % (3.3-12.3); Neutrophils % 83.8 % (41.7-73.7); Platelets 226 thou/uL (152-406); RBC Red Blood Cell Count 4.23 M/uL (3.86-4.86); Red Cell Distribution Width 14.4 % (12.1-15.2)
[2025-01-04 08:20] LABS: Albumin 3.2 g/dL (3.4-5.0); Albumin/Globulin Ratio 0.9 (1.1-1.8); Bilirubin Total 0.3 mg/dL (0.2-1.0); Globulin 3.5 g/dL (2.3-3.5); Protein, Total 6.7 g/dL (6.4-8.2)
--- NOTE | 2025-01-04 08:34 | RAD REPORT ---
EXAMINATION: Brain Wo Cont CLINICAL INDICATION: Female, 79 years old. Stroke TECHNIQUE: Multiplanar multisequence MR images of the brain were obtained without intravenous contras t. Unless otherwise specified, incidental findings do not require dedicated imaging follow-up. [id number]. COMPARISON: 03/20/2024, head CT 01/03/2025 FINDINGS: INTRACRANIAL: No acute infarct identified. No significant mass effect or midline shift.No hydrocepha michelle. Mild chronic small vessel ischemic changes.Mild cerebral atrophy. VASCULATURE: Normal signal voids in the larger intracranial arteries and dural venous sinuses. SINUSES: The paranasal sinuses are predominantly clear.No mastoid effusions. BONE: The marrow signal pattern is within normal limits. IMPRESSION: No acute intracranial abnormality. Specifically, no evidence of acute infarct. Chronic findings as no shelby above.
[2025-01-04] MEDS: ENOXAPARIN 40 MG/0.4 ML SQ SCH (09:00)
[2025-01-04] MEDS: ASPIRIN EC 81 MG TAB PO SCH ×2 (09:00)
[2025-01-04] MEDS: BISOPROLOL 5 MG TABLET PO SCH (09:00)
[2025-01-04] MEDS: BISOPROLOL/HCTZ 2.5/6.25MG TAB PO SCH (09:00)
[2025-01-04] MEDS: NIACIN 500 MG SR TAB PO SCH (09:00)
[2025-01-04] MEDS ORDERED: ENOXAPARIN 40 MG/0.4 ML SQ ONE (09:52)
[2025-01-04] MEDS ORDERED: ASPIRIN EC 81 MG TAB PO ONE (09:52)
[2025-01-04 13:02] VITALS: TEMP 98.2
[2025-01-04 13:07] VITALS: O2SAT 97
[2025-01-04 13:09] VITALS: BP 137/70
--- NOTE | 2025-01-04 15:40 | P.DS ---
Admission Date: 01/03/25 Discharge Date: 01/04/25 Disposition: ROUTINE DISCHARGE Discharge Condition: GOOD Reason for Admission: ? Stroke Brief History of Present Illness: 79-year-old female with past medical history of hypertension, hyperlipidemia, hypothyroidism who was brought to ER with headache which has been going on for the last 1 month and has been seen by the PCP. Family noticed that she had a right-sided facial droop for the last few days and was brought to ER for possible CVA. Still continues to have headache on the right side. No fever or chills. Denies any chest pain or shortness of breath. Denies any palpitation. Patient was assessed in the ER and is admitted for further management Hospital Course: [place] palsy Hypertension Hyperlipidemia CKD stage II Diabetes Anemia of chronic disease Patient was admitted for right-sided facial weakness. 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 CT head without contrast was negative for acute findings, CTA of the head was negative for large vessel occlusion. CTA of the neck did demonstrate moderate left carotid artery stenosis, this was discussed with patient and should be monitored as an outpatient. MRI of the head was obtained which was negative for acute findings specifically no signs of CVA. Patient did have involvement of her upper eyelid although she is able to close her eye with minimal difficulty. She will be prescribed a course of prednisone as well as valacyclovir, artificial tears and eye patch was discussed as well. Please continue your other home medications as previously prescribed Follow-up with your primary care doctor and Dr. Rubio with neurology in the next 1 to 2 weeks Vital Signs/Physical Exam: Temp Pulse Resp BP Pulse Ox 98.2 F 72 16 137/70 96 01/04/25 13:00 01/04/25 13:07 01/04/25 13:07 01/04/25 13:07 01/04/25 08:00 General: Alert, In no apparent distress, Oriented x3 HEENT: Atraumatic, PERRLA, EOMI Neck: Supple, JVD not distended Respiratory: Clear to auscultation bilaterally, Normal air movement Cardiovascular: Regular rate/rhythm, Normal S1 S2 Gastrointestinal: Normal bowel sounds, No tenderness Musculoskeletal: No tenderness Integumentary: No rashes Neurological: Normal speech, Normal affect, Other (Right-sided facial droop, weakness of the right upper face including eyebrowmild, NIH score is 1) Laboratory Data at Discharge: WBC 7.70 thou/uL (4.3-10.9) 01/04/25 07:51 Hgb 12.9 g/dL (12.0-15.0) 01/04/25 07:51 Hct 38.0 % (36.0-45.0) 01/04/25 07:51 Plt Count 226 thou/uL (152-406) 01/04/25 07:51 PT 11.2 SECONDS (10-13.0) 01/03/25 19:50 INR 0.98 01/03/25 19:50 APTT 33.7 SECONDS (27.2-37.4) 01/03/25 19:50 Sodium 140 mEq/L (136-145) 01/04/25 07:51 Potassium 4.0 mEq/L (3.5-5.1) 01/04/25 07:51 BUN 17 mg/dL (7-18) 01/04/25 07:51 Creatinine 0.78 mg/dL (0.55-1.02) 01/04/25 07:51 Glucose 190 mg/dL (74-106) H 01/04/25 07:51 Magnesium 2.0 mg/dL (1.6-2.4) 01/03/25 19:50 Total Bilirubin 0.3 mg/dL (0.2-1.0) 01/04/25 07:51 AST 17 U/L (15-37) 01/04/25 07:51 ALT 22 U/L (13-56) 01/04/25 07:51 Alkaline Phosphatase 161 U/L (45-117) H 01/04/25 07:51 Triglycerides 58 mg/dL (<150) 01/04/25 07:51 Cholesterol 104 mg/dL (<200) 01/04/25 07:51 HDL Cholesterol 50 mg/dL (40-60) 01/04/25 07:51 Cholesterol/HDL Ratio 2.08 01/04/25 07:51 Home Medications: Aspirin [Aspirin EC 81 MG] 81 mg PO DAILY 03/27/15 Bisoprolol/Hydrochlorothiazide [Bisoprolol-Hctz 5-6.25 mg Tab] 1 each PO DAILY WITH BREAKFAST 03/27/15 Docosahexanoic AC/Epa [Fish Oil 1,000 MG*] 1,000 mg PO DAILY 03/27/15 Levothyroxine [Synthroid*] 50 mcg PO [id number] 03/27/15 Niacin [Niaspan] 500 mg PO DAILY 03/27/15 Potassium Chloride [Klor-Con] 20 meq PO DAILY 03/27/15 Tramadol HCl/Acetaminophen [Ultracet Tablet] 1 each PO Q6H #15 tablet 01/05/16 Valacyclovir HCl [Valacyclovir] 1,000 mg PO TID 7 Days #21 tab 01/04/25 predniSONE [Prednisone] See Rx Instructions .ROUTE .COMPLEX #22 tab 01/04/25 New Medications: predniSONE [Prednisone] See Rx Instructions .ROUTE .COMPLEX #22 tab Valacyclovir HCl [Valacyclovir] 1,000 mg PO TID 7 Days #21 tab Physician Discharge Instructions: Patient was admitted for right-sided facial weakness. 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 CT head without contrast was negative for acute findings, CTA of the head was negative for large vessel occlusion. CTA of the neck did demonstrate moderate left carotid artery stenosis, this was discussed with patient and should be monitored as an outpatient. MRI of the head was obtained which was negative for acute findings specifically no signs of CVA. Patient did have involvement of her upper eyelid although she is able to close her eye with minimal difficulty. She will be prescribed a course of prednisone as well as valacyclovir, artificial tears and eye patch was discussed as well. Please continue your other home medications as previously prescribed Follow-up with your primary care doctor and Dr. Rubio with neurology in the next 1 to 2 weeks Diet: AHA Activity: Ad neelima Followup: David Mercado DO [Primary Care Provider] - 1-2 Weeks Time spent managing pt's care (in minutes): 47
[2025-01-04] MEDS ORDERED: ATORVASTATIN 20 MG TAB PO SCH (21:00)
--- NOTE | 2025-01-07 09:29 | ECHO ---
HEIGHT: 4 ft 6 in WEIGHT: 147 lb 0 oz DATE OF STUDY: 01/04/[address]: Pankaj Riggs DO 2-DIMENSIONAL: YES M.MODE: YES DOPPLER: YES COLOR FLOW: YES TDS: PORTABLE: YES DEFINITY: BUBBLE STUDY: DIAGNOSIS: STROKE CARDIAC HISTORY: CATHERIZATION: NO SURGERY: NO PROSTHETIC VALVE: NO PACEMAKER: NO MEASUREMENTS (cm) DIASTOLIC (NORMALS) SYSTOLIC (NORMALS) IVSd 1.2 (0.6-1.2) LA Diam 2.4 (1.9-4.0) LVEF 60-65% LVIDd 3.4 (3.5-5.7) LVIDs 2.3 (2.0-3.5) %FS 33% LVPWd 1.3 (0.6-1.2) Ao Diam 2.8 (2.0-3.7) 2 DIMENSIONAL ASSESSMENT: RIGHT ATRIUM: NORMAL LEFT ATRIUM: NORMAL RIGHT VENTRICLE: NORMAL LEFT VENTRICLE: NORMAL TRICUSPID VALVE: MILD TRICUSPID REGURGITATION MITRAL VALVE: MILD MITRAL REGURGITATION PULMONIC VALVE: NORMAL AORTIC VALVE: NORMAL PERICARDIAL EFFUSION: NONE AORTIC ROOT: NORMAL LEFT VENTRICULAR WALL MOTION: NORMAL DOPPLER/COLOR FLOW: SEE BELOW COMMENTS: 1. NORMAL LEFT VENTRICULAR EJECTION FRACTION 60-65% WITH NORMAL WALL MOTION 2. GRADE I DIASTOLIC DYSFUNCTION 3. MILD MITRAL REGURGITATION 4. MILD TRICUSPID REGURGITATION TECHNOLOGIST: NACHO NICOLE
--- NOTE | 2025-01-09 12:58 | EKG ---
Test Date: 2025-01-03 Test Time: 22:38:38 Carrier Loader: CLARISSA MEASUREMENT RESULTS: Intervals: Rate: 67 SC: 170 QRSD: 86 QT: 422 QTc: 445 [place]: P: 23 SC: 170 QRS: 58 T: 54 INTERPRETIVE STATEMENTS: Normal sinus rhythm Nonspecific T wave abnormality Abnormal ECG Compared to ECG 03/07/2024 12:11:37 No significant changes Electronically Signed On 01-09-25 12:44:02 CDT by Ko Bailon
== END 2025-01-04 12:00 | disposition home or self-care (01) | DRG 74 ==
LOC: ER 18:47 → ERHOLD 23:32
PROVIDERS: ADMIT Family Medicine; ATTEND Hospitalist
DX: G51.0 Bell's palsy (principal); E03.9 Hypothyroidism, unspecified; E78.5 Hyperlipidemia, unspecified; I12.9 Hypertensive chronic kidney disease with stage 1 through stage 4 chronic kidney disease, or unspecified chronic kidney disease; N18.2 Chronic kidney disease, stage 2 (mild); E11.22 Type 2 diabetes mellitus with diabetic chronic kidney disease; D63.1 Anemia in chronic kidney disease; I25.2 Old myocardial infarction; R29.702 NIHSS score 2; Z88.5 Allergy status to narcotic agent; Z79.52 Long term (current) use of systemic steroids; Z90.49 Acquired absence of other specified parts of digestive tract; Z85.828 Personal history of other malignant neoplasm of skin; Z79.890 Hormone replacement therapy; Z79.899 Other long term (current) drug therapy
CPT/HCPCS: 36415; 70450; 70496; 70498; 70551; 71045; 80048; 80053; 80061; 81001; 82565; 83735; 84484; 85025; 85610; 85730; 86140; 92610; 93005; 93306; 96365; 96375; 97116; 97161; 99285; J1100; J1200; J1650; J2765; J7030; J7050; Q9967